=== PATIENT | female | born 1950 | race Caucasian/White ===

== ENCOUNTER 2019-03-10 20:51 | Emergency (ER) | payer BC, SELFPAY ==
[2019-03-10 20:53] VITALS: BP 156/81; PULSE 88; RESP 16; TEMP 36.6; O2SAT 96; BMI 24.1
--- NOTE | 2019-03-10 21:06 | RAD_ITS ---
We are attempting to reach an attending provider to discuss findings. An addendum with communication details will be sent when the communication is complete. STUDY: X-RAY CHEST REASON FOR EXAM: Female, 68 years old. Pneumothorax. TECHNIQUE: Frontal view of the chest COMPARISON: None. FINDINGS: There is a small (approximately 10%) right apical pneumothorax. There is no left-sided pneumothorax. There is right basilar atelectasis. The lungs are otherwise clear. There are no pleural effusions. The heart is normal in size. The visualized osseous structures are within normal limits. RAD/Chest 1 View (Portable) IMPRESSION: Small right apical pneumothorax. Electronically Signed: Javed Solo, at 21:35 EDT Tel , Service support ,
[2019-03-10 21:21] VITALS: PULSE 84; RESP 19; O2SAT 96
[2019-03-10 22:13] VITALS: PULSE 82; RESP 20; O2SAT 95
--- NOTE | 2019-03-10 22:18 | ED.VISSUMM ---
- ER Visit Summary Date of Service: 03/10/19 Chief Complaint: Chest pain History of Present Illness: The patient is a 68 F with chest pain for a few days, it is somewhat positional and shortness of breath she is an avid smoker, she is presenting from an urgent care after being diagnosed with a pneumothorax. Physical Examination: She has clear bilateral breath sounds. No hypoxia she does have some coarse breath sounds. Emergency Department Course and Treatment: [X-ray done in this emergency department shows a 10% pneumothorax. I had a long discussion with the patient, at this time we will try conservative treatment, I told her the rate of reabsorption would be 1 %/day, she wants conservative treatment at this time. She knows that if she feels where she needs to return right away. I will give her analgesia. I did talk to her at length about smoking cessation. I will place a nicotine patch. Disposition: [Discharge stable condition] Impression: [Spontaneous pneumothorax] This note was generated with [employer] dictation software. It may contain incorrect words, spelling, and punctuation that were not noted in review of the chart prior to signing ED Disposition - Plan for ED Patient: Disposition: Home or Assisted Living Instructions: Pneumothorax (Collapsed Lung) Prescriptions: Hydrocodone Bitart/Apap 5-325 [[place] 5MG-325MG] 1 tab PO Q4H PRN PRN 2 Days #12 tab PRN Reason: Pain Referrals: Marshall Schneider MD [Primary Care Provider] - 3-5 Days
--- NOTE | 2019-03-10 22:21 | ED.DCSUM_ITS ---
- ER Visit Summary Date of Service: 03/10/19 Chief Complaint: Chest pain History of Present Illness: The patient is a 68 F with chest pain for a few days, it is somewhat positional and shortness of breath she is an avid smoker, she is presenting from an urgent care after being diagnosed with a pneumothorax. Physical Examination: She has clear bilateral breath sounds. No hypoxia she does have some coarse breath sounds. Emergency Department Course and Treatment: [X-ray done in this emergency department shows a 10% pneumothorax. I had a long discussion with the patient, at this time we will try conservative treatment, I told her the rate of reabsorption would be 1 %/day, she wants conservative treatment at this time. She knows that if she feels where she needs to return right away. I will give her analgesia. I did talk to her at length about smoking cessation. I will place a nicotine patch. Disposition: [Discharge stable condition] Impression: [Spontaneous pneumothorax] This note was generated with [employer] dictation software. It may contain incorrect words, spelling, and punctuation that were not noted in review of the chart prior to signing ED Disposition - Plan for ED Patient: Disposition: Home or Assisted Living Instructions: Pneumothorax (Collapsed Lung) Prescriptions: Hydrocodone Bitart/Apap 5-325 [[place] 5MG-325MG] 1 tab PO Q4H PRN PRN 2 Days #12 tab PRN Reason: Pain Referrals: Marshall Schneider MD [Primary Care Provider] - 3-5 Days
[2019-03-10] MEDS: HYDROcodone Bitartrate/Apap 5/325 Tablet PO ×2 (22:32→22:46)
== END 2019-03-10 22:47 | disposition home or self-care (01) ==
PROVIDERS: Emergency Provider Emergency Medicine; Family Provider Family Medicine; PCP Family Medicine
DX: J93.83 Other pneumothorax (principal); F17.200 Nicotine dependence, unspecified, uncomplicated
CPT/HCPCS: 71045; 94760; 99284; A4216

== ENCOUNTER → 2021-02-15 08:26 | Outpatient (CLI) | payer MEDICARE, BC, SELFPAY ==
[2021-02-15 09:52] LABS: Hematocrit 42.8 % (37-47); Hemoglobin 13.9 g/dL (12.0-15.0); Mean Corp Hgb Conc 32.5 g/dL (32-36); Mean Corpuscular Hgb 31.9 pg (27.0-32.0); Mean Corpuscular Volume 98.2 fL (81-99); Mean Platelet Vol. 11.1 fl (6.2-12.0); Platelet Count 326 K/mm3 (150-450); RBC Distribution Width CV 13.6 % (11.6-14.6); RBC Distribution Width SD 49.7 fl (35.1-43.9); Red Blood Count 4.36 M/mm3 (4.2-5.4); White Blood Count 7.5 K/mm3 (4.4-11.0)
[2021-02-15 10:41] LABS: Anion Gap 3 (5-15); BUN 10 mg/dL (7-18); BUN/Creat Ratio 12.4 RATIO (10-20); Calcium,Total 9.2 mg/dL (8.5-10.1); Chloride 105 mmol/L (98-107); Cholesterol 173 mg/dL (200); Creatinine, Serum 0.81 mg/dL (0.55-1.02); EST Glomerular Filtration Rate 74 mL/min (>60); Est Glom Filt Rate - Afr Amer 90 mL/min (>60); Glucose 98 mg/dL (74-106); High Density Lipoprotein 48 mg/dL; Potassium 4.3 mmol/L (3.5-5.1); Sodium Level 140 mmol/L (136-145); Thyroid Stim Hormone (TSH) 0.84 uIU/mL (0.358-3.74); Triglycerides 129 mg/dL; Very Low Density Lipoprotein 26 mg/dL (5-40)
== END ==
PROVIDERS: PCP Family Medicine; Visit Provider Family Medicine
DX: R03.0 Elevated blood-pressure reading, without diagnosis of hypertension (principal); E03.9 Hypothyroidism, unspecified; R09.89 Other specified symptoms and signs involving the circulatory and respiratory systems; Z13.220 Encounter for screening for lipoid disorders
CPT/HCPCS: 36415; 80048; 80061; 84443; 85027

== ENCOUNTER → 2021-02-28 12:36 | Outpatient (CLI) | payer MEDICARE, BC, SELFPAY ==
--- NOTE | 2021-02-28 12:41 | CDU_ITS ---
Reason For Study: Bruit Rt. Velocities/BP Lt. Velocities/BP Prox CCA 91/15 cm/sec. Prox CCA 124/19 cm/sec. Mid CCA 72/14 cm/sec. Mid CCA 76/18 cm/sec. Dist CCA 77/20 cm/sec. Dist CCA 74/20 cm/sec. Prox ICA 70/17 cm/sec. Prox ICA 66/18 cm/sec. Mid ICA 81/22 cm/sec. Mid ICA 103/27 cm/sec. Dist ICA 122/16 cm/sec. Dist ICA 118/30 cm/sec. Rt. ICA/CCA = 1.7. Lt. ICA/CCA = 1.5. Prox ECA 125/8 cm/sec. Prox ECA 201/8 cm/sec. Rt. Vert. 55/12 cm/sec. Lt. Vert. 105/19 cm/sec. Right Extracranial There is heterogeneous, irregular atherosclerotic plaque noted in the right common carotid artery. There is heterogeneous, irregular atherosclerotic plaque noted in the right internal carotid artery. There is heterogeneous, irregular atherosclerotic plaque noted in the right external carotid artery. Antegrade flow is noted in the right vertebral artery. Left Extracranial There is heterogeneous, irregular atherosclerotic plaque noted in the left common carotid artery. There is heterogeneous, irregular atherosclerotic plaque noted in the left internal carotid artery. There is heterogeneous, irregular atherosclerotic plaque noted in the left external carotid artery. Antegrade flow is noted in the left vertebral artery. Procedure Carotid Duplex 85158. This is a Carotid Duplex examination using B-mode, color flow and specral Doppler. Exam performed in department. VL/Carotid Duplex Ultrasound Interpretation Summary Irregular plague right internal carotid artery with <50% <50% stenosis right external carotid Irregular plague at the proximal left internal carotid with <50% stenosis. >50% stenosis left external carotid Patent, antegrade vertebrals bilaterally Ordering Physician: Jed Schneider Referring Physician: Jed Schneider Performed By: Medina Garvey, GREGORY, RVT
== END ==
PROVIDERS: PCP Family Medicine; Referring Provider Family Medicine; Visit Provider Family Medicine
DX: R09.89 Other specified symptoms and signs involving the circulatory and respiratory systems (principal)
CPT/HCPCS: 93880

== ENCOUNTER → 2021-03-19 | Outpatient (CLI) | payer MEDICARE, BC, SELFPAY | END | disposition home or self-care (01) | LOC: LABSPEC 14:57 | PROVIDERS: PCP Family Medicine; Visit Provider Otolaryngology | DX: H92.11 Otorrhea, right ear (principal) | CPT/HCPCS: 87070; 87075; 87077; 87186; 87205 ==

== ENCOUNTER → 2021-05-21 09:42 | Outpatient (CLI) | payer MEDICARE, BC, SELFPAY ==
[2021-05-21 12:33] LABS: Anion Gap 5 (5-15); BUN 12 mg/dL (7-18); BUN/Creat Ratio 13.3 RATIO (10-20); Calcium,Total 9.3 mg/dL (8.5-10.1); Chloride 96 mmol/L (98-107); EST Glomerular Filtration Rate 65 mL/min (>60); Est Glom Filt Rate - Afr Amer 79 mL/min (>60); Glucose 103 mg/dL (74-106); Potassium 4.3 mmol/L (3.5-5.1); Sodium Level 130 mmol/L (136-145)
== END ==
PROVIDERS: PCP Family Medicine; Referring Provider Family Medicine; Visit Provider Family Medicine
DX: I10 Essential (primary) hypertension (principal)
CPT/HCPCS: 36415; 80048

== ENCOUNTER → 2021-09-04 | Outpatient (CLI) | payer MEDICARE, BC, SELFPAY | END | disposition home or self-care (01) | LOC: LABSPEC 09-05 07:40 | PROVIDERS: PCP Family Medicine; Referring Provider Family Medicine; Visit Provider Family Medicine | DX: R69 Illness, unspecified (principal) ==

== ENCOUNTER → 2021-09-05 07:28 | Outpatient (CLI) | payer MEDICARE, BC, SELFPAY ==
--- NOTE | 2021-09-04 13:20 | LES_PTH ---
PATIENT: JOLLY WALDEN LOC: CT U#:[id number] AGE/SX: 75/F ROOM: RE09/05/[address]: Dr. Jed Schneider MD : 1950 BED: DIS: SPEC #: [id number] RECD: 09/04/21 17:28 STATUS: KITTY LUIS #: [id number] SHANNON: 09/04/21 13:[address]: Jed Schneider DEPT: SURGICAL PATHOLOGY RECD BY: Kadie Loo Tissues: Skin of scalp, NOS Procedures: Surgery Specimen Level IV HEADER OPERATION: Punch biopsy scalp PRE-OP DIAGNOSIS: Atypical nevus scalp TISSUE SUBMITTED: Atypical nevus scalp MICROSCOPIC DIAGNOSIS Scalp lesion, punch biopsy: Basal cell carcinoma. DORIS:denae 09/08/2021 COMMENT Case has been reviewed in consultation with Dr. Talley who concurs with the above diagnosis. IDC:AM MICROSCOPIC DESCRIPTION Slides are reviewed. GROSS DESCRIPTION Received in fixative is one container labeled with the patient's name and designated scalp. The specimen consists of a punch biopsy of horton-white skin measuring 0.4 cm in diameter and 0.3 cm in length. The entire specimen is submitted in one cassette. / SJ:rg 09/05/21 TC:0 CPT: 88105
--- NOTE | 2021-09-05 07:30 | CT_ITS ---
STUDY: LOW DOSE CT LUNG CANCER SCREENING REASON FOR EXAM: Female, 70 years old. TOBACCO USE RADIATION DOSAGE (If Supplied By Facility): CTDIvol = ( 2.01 ) mGy, DLP = ( 73.74 ) mGycm TECHNIQUE: No contrast was administered. Low dose technique was utilized (average mAS-38 and kVp 120). 1.25 mm axial source images with a slice interval of 1.25-mm were reconstructed in lung windows. 2.5 mm axial source images with a slice interval of 2.5-mm were reconstructed in lung windows. 5.0 mm axial source images with a slice interval of 5.0-mm were reconstructed in soft tissue windows. Nodule measured using lung windows on PACS and/or independent workstation with automated measurement of minimum and maximum diameter. Nodule measurement reported as average diameter rounded to the nearest whole number. Growth is defined as an increase ins size of greater than 1.5 mm. COMPARISON: None. Emphysema: Scarring at the right lung apex. Diffuse emphysematous changes. 2 mm noncalcified pleural-based nodule along the posterior lateral aspect of the right upper lobe as seen on axial image #43. 2 mm calculus in the lateral aspect of the right upper lobe as seen on axial image #52. 3 mm nodule in the peripheral anterior aspect of the right upper lobe as seen on axial image #71. Endobronchial lesion: None Aorta: Atherosclerotic plaque formation. Coronary arteries: Coronary artery calcification. Heart: Unremarkable Pulmonary artery: Unremarkable Mediastinal nodes: Small mediastinal lymph nodes. Other chest and abdominal findings: Small hiatal hernia. CT/Low Dose CT Lung Screening IMPRESSION: Lung-RADS category 2 - Continue annual screening with LDCT in 12 months. IMPORTANT NOTES FOR USE: ACR Lung-RADS Version 1.1 Assessment Categories Release Date: 2018 Category: Coded 0-4 bases on nodule(s) with highest degree of suspicion. Negative screen is defined as categories 1 and 2; a positive screen is defined as categories 3 and 4. Category 3 and 4A nodules that are unchanged on interval CT should be coded as category 2, and individuals returned to screening in 12 months. Category 4X: Category 3 or 4 nodules with additional imaging findings that increase the suspicion of lung cancer, such as spiculation, GGN that doubles in size in 1 year, enlarged lymph notes, etc. Category Modifiers: S (significant finding unrelated to lung cancer) Electronically Signed: Gian Ferrer MD at 13:47 EST , Service support ,
== END ==
PROVIDERS: PCP Family Medicine; Referring Provider Family Medicine; Visit Provider Family Medicine
DX: Z12.2 Encounter for screening for malignant neoplasm of respiratory organs (principal); F17.210 Nicotine dependence, cigarettes, uncomplicated
CPT/HCPCS: 71271; 88305

== ENCOUNTER → 2021-09-12 | Outpatient (CLI) | payer MEDICARE, BC, SELFPAY ==
--- NOTE | 2021-09-12 11:00 | LES_PTH ---
PATIENT: JOLLY WALDEN LOC: [facility] U#:[id number] AGE/SX: 70/F ROOM: RE09/12/[address]: Dr. Jed Gamez MD : 1950 BED: DIS: 09/12/2021 SPEC #: [id number] RECD: 09/15/21 09:13 STATUS: KITTY TANNERBrady #: [id number] SHANNON: 09/12/21 11:[address]: Jed Gamez DEPT: SURGICAL PATHOLOGY RECD BY: Kadie Loo ENTERED: 09/15/21 09:14 SP TYPE: Lesion OTHR DR: Dr. Jed Schneider MD Tissues: Skin of external ear, NOS Procedures: Surgery Specimen Level III HEADER OPERATION: Right ear mass PRE-OP DIAGNOSIS: Right ear mass TISSUE SUBMITTED: Right ear mass MICROSCOPIC DIAGNOSIS Right ear mass, biopsy: Consistent with cholesteatoma. AM:denae 09/16/2021 MICROSCOPIC DESCRIPTION Slides are reviewed. GROSS DESCRIPTION Received in fixative is one container labeled with the patient's name and designated right ear mass. The specimen consists of multiple irregular fragments of horton-brown soft tissue that in aggregate measure 0.3 x 0.1 x 0.1 cm. The specimen is totally submitted in one cassette. / SJ:denae 09/15/21 TC:5 CPT: 83827
== END | disposition home or self-care (01) ==
PROVIDERS: PCP Family Medicine; Referring Provider Otolaryngology; Visit Provider Otolaryngology
DX: H93.8X1 Other specified disorders of right ear (principal)
CPT/HCPCS: 88304; 88305

== ENCOUNTER → 2021-09-25 08:04 | Outpatient (CLI) | payer MEDICARE, BC, SELFPAY ==
--- NOTE | 2021-09-25 08:07 | BI_ITS ---
MAMMOGRAPHY - BILATERAL SCREENING REASON FOR EXAM: Female, 71 years old. Routine annual screening examination. PERTINENT HISTORY: Non-contributory. TECHNIQUE: Digital bilateral breast zaid (3D mammographic acquisition) in the CC and MLO projections. 2-D mediolateral oblique (MLO) and craniocaudad (CC) views of both breasts were obtained. CAD: Full Field Digital Mammography with Computer Added Detection was performed. COMPARISON: No comparison mammograms available at this time. If any prior films become available, an addendum to this report can be generated. FINDINGS: Breast Composition: The breasts are heterogeneously dense, which may obscure small masses. There are no dominant masses or suspicious calcifications. There is an 8.2 mm densely calcified nodule in the upper central portion of the left breast suggestive of calcified fibroadenoma. No other significant abnormalities are identified. There has been no significant change since the prior study. BI/SCREENING MAMM (CAD), BILAT IMPRESSION: Stable bilateral screening mammogram. Yearly follow-up mammogram recommended. (A) ASSESSMENT CATEGORY: BIRADS Category 2: Benign. A letter regarding these results will be sent to the patient by the facility within 30 days. Approximately 10% of breast cancers are not detected by mammography. A normal mammogram should not delay biopsy of a clinically suspicious abnormality. [id number] Electronically Signed: Gian Ferrer MD at 9:21 EST , Service support ,
--- NOTE | 2021-09-25 09:35 | BD_ITS ---
STUDY: DUAL ENERGY X-RAY ABSORPTIOMETRY / DXA REASON FOR EXAM: Female, 71 years old. Z780 TECHNIQUE: Bone Mineral Density (BMD) measurements of lumbar spine and bilateral hips were obtained. COMPARISON: None. FINDINGS: Lumbar Spine (L1-L4): g/cm2 (0.940) / T-score (-1.0) / Z-score (1.3) Findings are suggestive of normal bone density with a low fracture risk. Left Femur Total: g/cm2 (0.869) / T-score (-0.6) / Z-score (1.1) Left Femoral Neck: g/cm2 (0.648) / T-score (-1.8) / Z-score (0.2) Right Femur Total: g/cm2 (0.856) / T-score (-0.7) / Z-score (1.0) Right Femoral Neck: g/cm2 (0.671) / T-score (-1.6) / Z-score (0.4) BD/Dexa Bone Density Study IMPRESSION: The patient is considered osteopenic as outlined below according to World [place] Organization (WHO) criteria with a moderate fracture risk. Reference Information: The T-score is the number of standard deviations above or below the standard which is normal for young adults at their peak bone mineral density. The World Health Organization (WHO) interprets the T-scores as follows: Above -1 Normal bone density Between -1 and -2.5 Osteopenia Equal to / or below -2.5 Osteoporosis As a practical clinical guideline, osteopenia may be graded as follows: Mild -1 through -1.5 Moderate -1.6 through -2.0 Severe -2.1 through -2.4 The Z-score is the number of standard deviations above or below age-matched controls. A Z-score of less than -1.5 would be considered abnormal. References: 1. NIH Osteoporosis and Related Bone Diseases www osteo.org 2. International Society for Clinical Densitometry www iscd.org 3. National Osteoporosis Foundation www nof.org Electronically Signed: Gian Ferrer MD at 10:30 EST , Service support ,
== END ==
PROVIDERS: PCP Family Medicine; Referring Provider Family Medicine; Visit Provider Family Medicine
DX: Z78.0 Asymptomatic menopausal state (principal); Z12.31 Encounter for screening mammogram for malignant neoplasm of breast
CPT/HCPCS: 77067; 77080

== ENCOUNTER 2021-09-29 11:01 | Day surgery (SDC) | payer MEDICARE, BC, SELFPAY ==
[2021-09-29] VITALS (7 sets, daily range): BP systolic 134–171; BP diastolic 69–75; PULSE 72–78; RESP 16; TEMP 35.7–37.1; O2SAT 90–98; BMI 23.3
--- NOTE | 2021-09-29 | LES_PTH ---
PATIENT: JOLLY WALDEN LOC: [facility] [place] U#:[id number] AGE/SX: 71/F ROOM: RE09/29/[address]: Dr. Jesus Alberto Mcgrath MD : 1950 BED: DIS: 09/29/2021 SPEC #: [id number] RECD: 09/30/21 07:39 STATUS: KITTY REBrady #: [id number] SHANNON: 09/29/21 00:[address]: Jesus Alberto Mcgrath DEPT: SURGICAL PATHOLOGY RECD BY: Jimmy Paris ENTERED: 09/30/21 12:56 SP TYPE: Lesion OTHR DR: Dr. Jed Schneider MD Tissues: Skin of scalp, NOS Procedures: Surgery Specimen Level IV HEADER OPERATION: Excision, basal cell carcinoma, anterior frontal scalp, skin PRE-OP DIAGNOSIS: Basal cell carcinoma right anterofrontal scalp near hairline TISSUE SUBMITTED: BCC lesion right anterofrontal scalp hairline, suture at 12 o?clock MICROSCOPIC DIAGNOSIS Skin lesion of anterofrontal scalp, excisional biopsy: Basal cell carcinoma, superficial, nodular and ulcerated, completely excised. Solar elastosis and fat necrosis. AM:denae 10/01/2021 MICROSCOPIC DESCRIPTION Slides are reviewed. GROSS DESCRIPTION Received in fixative is one container labeled with the patient's name and designated right anterofrontal scalp. The specimen consists of a rectangular fragment of light horton hair-bearing skin measuring 2.5 x 2.2 x 0.5 cm. The cutaneous surface displays a flat circular lesion measuring 1 cm in greatest dimension. The specimen is contains a suture at one edge representing the 12 o?clock position. The specimen is inked as follows: 12 o?clock - black, 3 o?clock - green, 6 o?clock - blue and 9 o?clock - red. The specimen is serially sectioned and totally submitted in two cassettes. / AM:denae 09/30/21 TC:0 CPT: 10309
--- NOTE | 2021-09-29 13:57 | HP.PCM_ITS ---
History and Physical Date of Admission: 09/29/21 HISTORY OF PRESENT ILLNESS 71 year old woman presents for evaluation of a lesion on her right anterofrontal scalp near hairline that had increased in size over the last several months and became more raised in configuration. Intermittently it would get scabby. A punch biopsy was done on 09/04/21 by her PCP, Dr. Schneider. Pathology showed a basal cell carcinoma. She denies fever. She denies recent infection. She denies trauma. She comes in today for further evaluation and treatment. PAST MEDICAL HISTORY Basal cell carcinoma of scalp High blood pressure Smoker Thyroid disease PAST SURGICAL HISTORY History of hysterectomy History of knee surgery History of thyroid surgery History of tubal ligation ALLERGIES iodine MEDICATIONS fluticasone propionate actuation nasal spray,suspension lisinopril FAMILY HISTORY Other - Cancer, Heart disease, Ovarian cancer, Thyroid disorder SOCIAL HISTORY Smoking Status: Current every day smoker counseling given: provider counseling alcohol intake: never substance use type: does not use REVIEW OF SYSTEMS General - Denies fever, fatigue, and weight loss. Eyes - Denies cataracts and glaucoma. ENT - Denies nasal congestion and sore throat. History of thyroidectomy. Endocrine - Denies excessive thirst and urination. Skin - Had a scabby enlarging lesion right anterofrontal scalp near hairline that was punch biopsied on 09/04/21 and it showed a basal cell carcinoma. Musculoskeletal - Denies joint pain, joint stiffness, weakness of muscles and joints, back pain, and arthritis. History of knee surgery. Neuro - Denies headaches. Cardiovascular - Denies chest pain, fatigue, and shortness of breath with exertion. History of hypertension. Psych - Denies anxiety and depression. Respiratory - Denies chronic cough and shortness of breath. Patient is a smoker. Gastrointestinal - Denies nausea, vomiting, diarrhea, and constipation. Hematologic - Denies abnormal bruising and bleeding. Genitourinary - Denies hematuria and urinary frequency. History of kidney stones and having a hysterectomy. PHYSICAL EXAMINATION General - Alert and Oriented. HEENT - PERRL. EOMI. Throat is clear. On the right anterofrontal scalp near hairline is a lesion that is raised in configuration and has irregular borders. It is nodular. It measures 1.2 cm. No ulceration. Lesion is nontender. Recent punch biopsy on 09/04/21 showed a basal cell carcinoma. Some overlying alopecia noted. No other suspicious lesions noted. Neck - Supple and nontender. No cervical adenopathy. No suspicious lesions noted. Lungs - Clear to auscultation. Heart - Regular rate and rhythm. Abdomen - Soft and nondistended. Extremities - FROM. No axillary adenopathy. Radial pulses are palpable. No suspicious lesions noted. Neuro - CN II-XII grossly intact. Psych - Normal mood and affect. ASSESSMENT 1. 1.2 cm basal cell carcinoma right anterofrontal scalp near hairline. 2. Smoker. PLAN Pathology was reviewed from 09/04/21. It showed a basal cell carcinoma. Recommend excision of the rest of the lesion along with a margin in all directions. Will send the lesion to Pathology for analysis to rule out carcinoma at the edges. Reconstruction will be with skin grafting or possible skin flap. Surgery will be done under local anesthesia and IV sedation on an outpatient basis. Patient was informed of the risks and complications of the procedure including alternatives to surgery. These were discussed with the patient personally. Patient voices understanding and wishes to proceed. Some of the risks and complications were included in a form from the [place] [employer]. Encouraged patient to stop smoking as it may have deleterious effects on wound healing. We discussed the current risks associated with COVID-19. While it is understood that there is a community spread of COVID-19, the risk of trena COVID-19 while at [facility] ([facility]) is very low; however, the risk cannot be completely mitigated because of the community spread of the disease. We discussed in detail the risk of exposure to and/or potential harm posed by the COVID-19 virus with having a surgery/procedure at this time versus the risk of delaying the surgery/procedure. It is not possible to know either the risk of delaying the surgery or procedure or chance of getting an infection with perfect accuracy, but a joint decision was made to proceed at this time with the scheduled surgery/procedure as indicated on the consent form. Patient was notified that we will need to comply with any screening or testing [facility] wishes to perform or that surgery may be delayed for any positive results. Procedure Criteria Procedure Type: Elective COVID Risk Discussion: The surgeon/proceduralist and patient have discussed in detail the risk of exposure to and/or potential harm posed by the COVID-19 virus with having a surgery/procedure at this time versus the risk of delaying the surgery/procedure. It is not possible to know either the risk of delaying the surgery or procedure or chance of getting an infection with perfect accuracy, but a joint decision was made between the patient and the surgeon/proceduralist to proceed at this time with the scheduled surgery/procedure as indicated on the consent form.
[2021-09-29] MEDS: Lidocaine 1% /Epi 1:100 (20ml) 20 ML Vial (15:00)
[2021-09-29] MEDS: Mupirocin Ointment 22gm Tube 1 APPLIC (15:05)
--- NOTE | 2021-09-29 15:17 | OP.PCM_ITS ---
Problems Associated Problem List Diagnoses (1) Basal cell carcinoma of scalp: (2) Basal cell carcinoma of right forehead: (3) Smoker: Report of Operation Date of Procedure: 09/29/21 Pre-Operative Diagnosis: 1. 1.2 cm basal cell carcinoma right anterofrontal scalp near hairline. 2. Smoker. Post-Operative Diagnosis: 1. 1.2 cm basal cell carcinoma right anterofrontal scalp near hairline with inferior extension on the forehead. 2. Smoker. Surgery/Procedure Performed:: Excision 1.2 cm basal cell carcinoma right anterofrontal scalp near hairline with inferior extension onto forehead with right forehead horizontal advancement skin flap reconstruction (13.75 cm2). Description of Surgical Findings:: 71 year old woman presents for evaluation of a lesion on her right anterofrontal scalp near hairline that had increased in size over the last several months and became more raised in configuration. Intermittently it would get scabby. A punch biopsy was done on 09/04/21 by her PCP, Dr. Schneider. Pathology showed a basal cell carcinoma. She denies fever. She denies recent infection. She denies trauma. Patient was informed of the risks and complications of the procedure including alternatives to surgery. These were discussed with the patient personally. Patient voices understanding and wishes to proceed. Some of the risks and complications were included in a form from the [employer] [place] [employer]. Encouraged patient to stop smoking as it may have deleterious effects on wound healing. Surgeon: Jesus Alberto Mcgrath tomographic tech: Alexey Robles Type of Anesthesia: General Specimen's removed: Basal cell carcinoma right anterofrontal scalp by hairline with inferior extension onto forehead to Pathology. Drains: None. Estimated Blood Loss (mL): 25. Description of Procedure: Patient was taken to OR in supine position and was placed under general anesthesia. The frontal scalp and forehead areas and right neck area were prepped and draped in the usual fashion. SCD's were placed for DVT prophylaxis. Perioperative antibiotics were given intravenously. Using xylocaine with epinephrine, the lesion right anterofrontal scalp by hairline was infiltrated. After waiting 5 minutes for the anesthetic to take effect, the basal cell carcinoma was excised in a circular fashion down into the subcutaneous tissue. A margin of 4 mm was used for the excision in all directions thus making it a 2 cm excision. After the excision, there was inferior extension of the wound onto the forehead. A suture was marked at the 12 oclock position for pathology orientation. The lesion was sent to Pathology for analysis to rule out carcinoma at the margins. With the basal cell carcinoma wound extending inferiorly onto the forehead, I felt I could mobilize some skin flaps for the reconstruction and not have to use a skin graft. I took the circular wound and changed it to a square wound since we will be reconstructing the defect with horizontal advancement flaps where the tension is horizontal and not vertical. Vertical tension can lead to elevation of the eyebrow and some asymmetry. A lateral horizontal flap was designed. Incisions were made and the horizontal rectangular flap was elevated at the level of the underlying muscle. I extended the flap as necessary to allow wound closure with minimal tension and minimal distortion. The dimensions of the flap were 3.5 x 2.5 cm. Hemostasis was obtained with electrocautery. The wound was closed in a layered fashion with 4-0 Monocryl interrupted sutures for the deep dermis and subcutaneous tissue for the distal end of the flap closure. The sides of the flap closure has less tension and 5-0 Monocryl interrupted sutures were used for the deep dermis and subcutaneous tissue. The skin was approximated with 5-0 Prolene simple interrupted sutures. Antibiotic ointment was applied to the suture line. At the end of the procedure, there was no evidence of hematoma. There was no vascular compromise noted on the skin flap. The size of the defect and the size of the flap needed to close the defect was 13.75 cm2. About half the flap involved the scalp hairline and about half the flap involved the forehead. Patient tolerated the procedure well and was sent to PACU in satisfactory condition. Patient will be sent home on antibiotics and pain medication. She will keep her head elevated during the initial postoperative period. Patient will followup in a week for a wound check and for discussion of the pathology report and for removal of the sutures. Grafts/Implants Used: None. Complications None. Admit VTE Documentation VTE Present on Admission: No VTE Mechan Device Prophylaxis: SCD's VTE Pharm Prophylaxis ordered?: No Addendum Addendum: Surgery Charges CPT - 63517 ICD-10 - C44.319, C44.412, F17.200
--- NOTE | 2021-09-29 15:19 | PCM.DC ---
Discharge Instructions Diet Discharge Diet: No restrictions Activity Discharge Activity: May Drive (when not taking pain medication.), May Shower (in 2 days.) and - (keep head elevated. no heavy lifting.) May shower in (days): 2 May resume sexual activity in: No Restrictions Ice area for (Minutes): 5 (as needed forr facial swelling.) Weight Bearing Status: Weight bearing as tolerated Lifting Restrictions: 20 lbsw Keep extremity elevated above heart level: - (elevate head.) Dressing / Incision Call your doctor if your incision/area has: Continuous Slow Oozing, Sudden Increased Bleeding, Increased Pain/ Swelling, Increased Redness, Foul Smelling Discharge and Swelling at the incision site Call your doctor if you observe: Fever of 101 or Higher, Coldness, Increased Pain, Shortness of breath, Chest pain, Calf discomfort and Uncontrolled pain Suture Line Care: - (after operative dressing removed in 2 days, apply antibiotic ointment to suture line daily.) Remove Dressing in: 2 days (operative dressing.) Cleanse incision/area with: Soap & Water (when showering in two days.) Follow Up Care Please Follow Up With: Jesus Alberto Mcgrath MD When: one week. call [phone] for appt. Test Results: Test results from this visit will be discussed in further detail at your follow-up appointment, if applicable. Discharge Plan Admission Primary Reason for Your Visit: excision basal cell carcinoma right anterofrontal scalp by hairline Attending Provider: Jesus Alberto Mcgrath Primary Care Provider: Marshall Schneider Discharge Orders/Prescriptions Prescriptions: New clindamycin HCl [Cleocin HCl] 300 mg capsule 300 mg PO TID 4 Days Qty: 12 RF: 0 L.acidoph,saliva-B.bif-S.therm [Acidophilus Probiotic Blend] 175 mg capsule 1 cap PO DAILY Qty: 10 RF: 0 oxycodone-acetaminophen [Percocet] 5-325 mg tablet 1 tab PO Q6H PRN (Reason: pain (scale score 7-10)) 7 Days Qty: 28 RF: 0 Continued fluticasone propionate 50 mcg/actuation spray,suspension 2 spray intranasal DAILY RF: 0 lisinopril 20 mg tablet 20 mg PO DAILY RF: 0 Referrals / Follow Up: Marshall Schneider MD [Primary Care Provider] - Disposition Disposition (needs filled in before D/C Order can be placed): Home, Self Care
== END 2021-09-29 17:21 ==
LOC: SDC 11:04 → AC 11:05
PROVIDERS: PCP Family Medicine; Referring Provider Surgery; Visit Provider Surgery
PROC: (CPT 14021; principal; 2021-09-29 12:40)
DX: C44.41 Basal cell carcinoma of skin of scalp and neck (principal); F17.200 Nicotine dependence, unspecified, uncomplicated; I10 Essential (primary) hypertension; Z79.899 Other long term (current) drug therapy
CPT/HCPCS: 14021; 88305; J7120; J2405

== ENCOUNTER → 2023-03-12 | Outpatient (CLI) | payer MEDICARE, SELFPAY ==
--- NOTE | 2023-03-12 13:13 | BI_ITS ---
MAMMOGRAPHY - BILATERAL SCREENING REASON FOR EXAM: Female, 72 years old. Routine annual screening examination. PERTINENT HISTORY: Non-contributory. TECHNIQUE: Digital bilateral breast humera (3D mammographic acquisition) in the CC and MLO projections. 2-D mediolateral oblique (MLO) and craniocaudad (CC) views of both breasts were obtained. CAD: Full Field Digital Mammography with Computer Added Detection was performed. COMPARISON: Comparison is made with prior examination dated September 25, 2021. FINDINGS: Breast Composition: The breasts are heterogeneously dense, which may obscure small masses. Stable 1 cm densely calcified nodule in the upper central portion of the left breast suggestive of a calcified fibroadenoma. Stable small benign-appearing bilateral axillary lymph nodes. No other significant abnormalities are identified. There has been no significant change since the prior study. BI/SCRN MAMM (CAD)W/HUMERA BILAT IMPRESSION: Stable bilateral screening mammogram. Yearly follow-up mammogram recommended. (A) ASSESSMENT CATEGORY: BIRADS Category 2: Benign. A letter regarding these results will be sent to the patient by the facility within 30 days. Approximately 10% of breast cancers are not detected by mammography. A normal mammogram should not delay biopsy of a clinically suspicious abnormality. [id number] Electronically Signed: Gian Ferrer MD at 14:39 EDT ,
--- NOTE | 2023-03-12 13:40 | CT_ITS ---
STUDY: LOW DOSE CT LUNG CANCER SCREENING REASON FOR EXAM: Female, 72 years old. TOBACCO ABUSE. The patient smoked 1 pack per day for 30 years. RADIATION DOSAGE (If Supplied By Facility): CTDIvol = ( 3.02 ) mGy, DLP = ( 117.02 ) mGycm TECHNIQUE: No contrast was administered. Low dose technique was utilized (average mAS-38 and kVp 120). 1.25 mm axial source images with a slice interval of 1.25-mm were reconstructed in lung windows. 2.5 mm axial source images with a slice interval of 2.5-mm were reconstructed in lung windows. 5.0 mm axial source images with a slice interval of 5.0-mm were reconstructed in soft tissue windows. COMPARISON: Comparison is made with prior study dated September 05, 2021. NODULES: Stable faint noncalcified nodule in the posterolateral aspect of the right upper lobe as seen on axial image #42. Stable 2 mm noncalcified nodule in the lateral aspect the right upper lobe as seen on axial image #48. Stable faint 3 mm nodule in the peripheral anterior aspect of the right upper lobe as seen on axial image #73. Emphysema: Stable scarring in the right lung apex. Diffuse emphysematous changes. Endobronchial lesion: None Aorta: Atherosclerotic plaque formation of the aortic arch. CORONARY ARTERIES: Coronary artery calcification is seen. Heart: Unremarkable. Pulmonary artery: Unremarkable. Mediastinal nodes: Small benign-appearing mediastinal lymph nodes. Other chest and abdominal findings: CT/Low Dose CT Lung Screening IMPRESSION: Lung-RADS category 2 - Continue annual screening with LDCT in 12 months. IMPORTANT NOTES FOR USE: ACR Lung-RADS Version 1.1 Assessment Categories Release Date: 2018 Category: Coded 0-4 bases on nodule(s) with highest degree of suspicion. Negative screen is defined as categories 1 and 2; a positive screen is defined as categories 3 and 4. Category 3 and 4A nodules that are unchanged on interval CT should be coded as category 2, and individuals returned to screening in 12 months. Category 4X: Category 3 or 4 nodules with additional imaging findings that increase the suspicion of lung cancer, such as spiculation, GGN that doubles in size in 1 year, enlarged lymph notes, etc. Category Modifiers: S (significant finding unrelated to lung cancer) Electronically Signed: Gian Ferrer MD at 14:06 EDT ,
== END | disposition home or self-care (01) ==
LOC: CT 13:11
PROVIDERS: PCP Family Medicine; Referring Provider Family Medicine; Visit Provider Family Medicine
DX: Z12.31 Encounter for screening mammogram for malignant neoplasm of breast (principal); F17.210 Nicotine dependence, cigarettes, uncomplicated
CPT/HCPCS: 71271; 77063; 77067

== ENCOUNTER → 2024-03-07 | Outpatient (CLI) | payer MEDICARE, SELFPAY ==
[2024-03-07 13:25] LABS: Anion Gap 2 (5-15); BUN 11 mg/dL (7-18); BUN/Creat Ratio 12.5 RATIO (10-20); Calcium,Total 9.3 mg/dL (8.5-10.1); Chloride 106 mmol/L (98-107); Cholesterol 206 mg/dL (200); Creatinine, Serum 0.88 mg/dL (0.55-1.02); EST Glomerular Filtration Rate 67 mL/min (>60); Est Glom Filt Rate - Afr Amer 81 mL/min (>60); Glucose 107 mg/dL (74-106); High Density Lipoprotein 54 mg/dL; Potassium 4.2 mmol/L (3.5-5.1); Sodium Level 137 mmol/L (136-145); Thyroid Stim Hormone (TSH) 0.74 uIU/mL (0.358-3.74); Triglycerides 96 mg/dL; Very Low Density Lipoprotein 19 mg/dL (5-40)
[2024-03-07 13:30] LABS: Vitamin D,25 Hydroxy 50.3 ng/mL
== END | disposition home or self-care (01) ==
LOC: MFPLAB 09:54
PROVIDERS: PCP Family Medicine; Visit Provider Family Medicine
DX: I10 Essential (primary) hypertension (principal); M85.80 Other specified disorders of bone density and structure, unspecified site; Z13.220 Encounter for screening for lipoid disorders
CPT/HCPCS: 36415; 80048; 80061; 82306; 84443

== ENCOUNTER → 2024-03-17 | Outpatient (CLI) | payer MEDICARE, SELFPAY ==
--- NOTE | 2024-03-17 08:21 | CT_ITS ---
STUDY: LOW DOSE CT LUNG CANCER SCREENING REASON FOR EXAM: Female, 73 years old. Long-term smoking history RADIATION DOSAGE (If Supplied By Facility): CTDIvol = ( 2.01 ) mGy, DLP = ( 74.24 ) mGycm TECHNIQUE: No contrast was administered. Low dose technique was utilized (average mAS-38 and kVp 120). 1.25 mm axial source images with a slice interval of 1.25-mm were reconstructed in lung windows. 2.5 mm axial source images with a slice interval of 2.5-mm were reconstructed in lung windows. 5.0 mm axial source images with a slice interval of 5.0-mm were reconstructed in soft tissue windows. COMPARISON: 03/12/2023 FINDINGS: Lung windows show stable nonspecific pleural thickening in both apices. There is a stable scar or groundglass opacification along the left major fissure on axial image 66 again measuring approximately 8 mm. There is a stable 3 mm pleural-based nodular density in the left upper lobe on axial image 73. There is a stable cavitary 6 mm nodule in the left upper lobe on axial image 94 there is no organized infiltrate, effusion, or suspicious new noncalcified mass or nodule. Overall, little significant interval change noted since the previous study Soft tissue windows show an enlarged right lobe of the thyroid gland. No suspicious adenopathy. No enlargement of the thoracic aorta is identified. There are calcified coronary vessels. Limited cuts through the upper abdomen show hiatal hernia with evidence to suspect GE reflux. Limited cuts of the upper abdomen show a 1 cm nonobstructing left renal stone . Bony structures show degenerative change CT/Low Dose CT Lung Screening IMPRESSION: Lung-RADS category 2 - Continue annual screening with LDCT in 12 months. IMPORTANT NOTES FOR USE: ACR Lung-RADS Version 1.1 Assessment Categories Release Date: 2018 Category: Coded 0-4 bases on nodule(s) with highest degree of suspicion. Negative screen is defined as categories 1 and 2; a positive screen is defined as categories 3 and 4. Category 3 and 4A nodules that are unchanged on interval CT should be coded as category 2, and individuals returned to screening in 12 months. Category 4X: Category 3 or 4 nodules with additional imaging findings that increase the suspicion of lung cancer, such as spiculation, GGN that doubles in size in 1 year, enlarged lymph notes, etc. Category Modifiers: S (significant finding unrelated to lung cancer) Electronically Signed: Tony East MD at 11:25 EDT ,
== END | disposition home or self-care (01) ==
PROVIDERS: PCP Family Medicine; Referring Provider Family Medicine; Visit Provider Family Medicine
DX: Z12.2 Encounter for screening for malignant neoplasm of respiratory organs (principal); F17.210 Nicotine dependence, cigarettes, uncomplicated
CPT/HCPCS: 71271

== ENCOUNTER → 2024-03-28 | Outpatient (CLI) | payer MEDICARE, SELFPAY ==
--- NOTE | 2024-03-28 15:20 | BI_ITS ---
MAMMOGRAPHY - BILATERAL SCREENING REASON FOR EXAM: Female, 73 years old. Routine annual screening examination. PERTINENT HISTORY: Non-contributory. TECHNIQUE: Digital bilateral breast humera (3D mammographic acquisition) in the CC and MLO projections. 2-D mediolateral oblique (MLO) and craniocaudad (CC) views of both breasts were obtained. CAD: Full Field Digital Mammography with Computer Added Detection was performed. COMPARISON: Comparison is made with prior study March 12, 2023 and September 25, 2021. FINDINGS: Breast Composition: The breasts are heterogeneously dense, which may obscure small masses. There are no dominant masses or suspicious calcifications. Stable 1 cm densely calcified nodule in the upper central portion of the left breast suggestive of a calcified fibroadenoma. Stable bilateral axillary lymph nodes. No other significant abnormalities are identified. There has been no significant change since the prior study. BI/SCRN MAMM (CAD)W/HUMERA BILAT IMPRESSION: Stable bilateral screening mammogram. Yearly follow-up mammogram recommended. (A) ASSESSMENT CATEGORY: BIRADS Category 2: Benign. A letter regarding these results will be sent to the patient by the facility within 30 days. Approximately 10% of breast cancers are not detected by mammography. A normal mammogram should not delay biopsy of a clinically suspicious abnormality. [id number] Electronically Signed: Gian Ferrer MD at 8:31 EDT ,
--- NOTE | 2024-03-28 15:26 | BD_ITS ---
STUDY: DUAL ENERGY X-RAY ABSORPTIOMETRY / DXA REASON FOR EXAM: Female, 73 years old. [id number] TECHNIQUE: Bone Mineral Density (BMD) measurements of lumbar spine and bilateral hips were obtained. COMPARISON: Comparison is made with prior study dated September 25, 2021. FINDINGS: Lumbar Spine (L1-L4): g/cm2 (0.920) / T-score (-1.2) / Z-score (1.3) Findings are suggestive of osteopenia with a low fracture risk. Left Femur Total: g/cm2 (0.848) / T-score (-0.8) / Z-score (1.0) Left Femoral Neck: g/cm2 (0.631) / T-score (-2.0) / Z-score (0.1) Right Femur Total: g/cm2 (0.834) / T-score (-0.9) / Z-score (0.9) Right Femoral Neck: g/cm2 (0.644) / T-score (-1.8) / Z-score (0.3) The T-Scores on the most recent prior examination were: Lumbar Spine (L1-L4): There has been worsening of bone density since the previous examination. Left Femur Total: which represents a worsening of 2.5%. Right Femur Total: which represents a worsening of 2.6%. BD/Dexa Bone Density Study IMPRESSION: The patient is considered osteopenic as outlined below according to World [place] Organization (WHO) criteria with a moderate fracture risk. There has been worsening of bone density since the previous examination. Reference Information: The T-score is the number of standard deviations above or below the standard which is normal for young adults at their peak bone mineral density. The World Health Organization (WHO) interprets the T-scores as follows: Above -1 Normal bone density Between -1 and -2.5 Osteopenia Equal to / or below -2.5 Osteoporosis As a practical clinical guideline, osteopenia may be graded as follows: Mild -1 through -1.5 Moderate -1.6 through -2.0 Severe -2.1 through -2.4 The Z-score is the number of standard deviations above or below age-matched controls. A Z-score of less than -1.5 would be considered abnormal. References: 1. NIH Osteoporosis and Related Bone Diseases www osteo.org 2. International Society for Clinical Densitometry www iscd.org 3. National Osteoporosis Foundation www nof.org Electronically Signed: Gian Ferrer MD at 8:31 EDT ,
== END | disposition home or self-care (01) ==
LOC: OPBD 15:17
PROVIDERS: PCP Family Medicine; Referring Provider Family Medicine; Visit Provider Family Medicine
DX: Z12.31 Encounter for screening mammogram for malignant neoplasm of breast (principal); Z78.0 Asymptomatic menopausal state
CPT/HCPCS: 77063; 77067; 77080

== ENCOUNTER → 2025-04-05 | Outpatient (CLI) | payer MEDICARE, SELFPAY ==
--- NOTE | 2025-04-05 08:06 | CT_ITS ---
EXAM: CT Chest, Lung Cancer Screening Without Intravenous Contrast CLINICAL INDICATION: >30 YEARS TOBACCO TECHNIQUE: Axial computed tomography images of the chest without intravenous contrast using low dose (LDCT) lung cancer screening protocol. This CT exam was performed using one or more of the following dose reduction techniques: automated exposure control, adjustment of the mA and/or kV according to patient size, and/or use of iterative reconstruction technique. COMPARISON: No relevant prior studies available. FINDINGS: LUNGS AND PLEURAL SPACES: Stable atelectasis or scar of the left major fissure measuring up to 8 mm. Stable 3 mm pleural-based nodule of the left upper lobe. Stable 6 mm nodule of the left upper lobe. No significant effusion. No pneumothorax. No new suspicious pulmonary nodules. HEART: Unremarkable. No cardiomegaly. No significant pericardial effusion. No significant coronary artery calcifications. BONES/JOINTS: Unremarkable. No acute fracture. SOFT TISSUES: Unremarkable. VASCULATURE: Unremarkable. No thoracic aortic aneurysm. LYMPH NODES: Unremarkable. No enlarged lymph nodes. OTHER FINDINGS: Prior dated 03/17/2024. CT/Low Dose CT Lung Screening IMPRESSION: 1. No new suspicious pulmonary nodules. 2. LUNG-RADS 2: Benign. Continue low-dose CT screening of the chest in 12 mon ths is recommended. Reading Location[facility]
--- OUTSIDE RECORDS SUMMARY | 2025-04-05 08:36 | XMS RPT_ITS | CCD ---
Author Organization [facility] Care Team Providers Care Double End Tenon Operator Name Role Phone Jed Schneider MD Primary Care Provider Jed Schneider Referring Unavailable Jed Schneider Attending Unavailable Jed Schneider Primary Care Unavailable Jed Schneider Referring Unavailable Jed Schneider Attending Unavailable Jed Schneider Primary Care Unavailable Allergies Allergy Classification Reported Allergen(s) Allergy Type Date of Onset Reaction(s) Facility (1 source) Contrast media Drug Allergy 5 [facility] (1 source) Iodine Drug Allergy 1 [facility] (1 source) Iodine Drug Allergy 1 [facility] Repository Medications Current Medications Medication Drug Class(es) Dates Sig (Normalized) Sig (Original) acetaminophen 325 mg / oxyCODONE hydrochloride 5 mg oral tablet (1 source) Opioid Agonist Start: 09-29-2021 take 1 tablet by mouth every six hours Oxycodone-Acetami nophen (Percocet) 5-325 mg tablet Active 1 TABLET PO EVERY 6 HOURS 28 7 September 29, 2021 28 tabs (twenty-eight) fluticasone propionate 0.05 mg/actuat metered dose nasal spray (1 source) Corticosteroid Start: 09-11-2021 take 1 spray(s) nasal route once daily Fluticasone Propionate Active 2 SPRAY INTRANASAL DAILY September 11, 2021 1:00am administer into each nostril L.Acidoph,Saliva-B. Bif-S.Therm (Acidophilus Probiotic Blend) 175 mg capsule (1 source) Start: 09-29-2021 take 1 capsule by mouth once daily L.Acidoph,Saliva- B.Bif-S.Therm (Acidophilus Probiotic Blend) 175 mg capsule Active 1 CAP PO DAILY September 29, 2021 1:00am lisinopril 20 mg oral tablet (1 source) Angiotensin Converting Enzyme Inhibitor Start: 09-11-2021 take 20 mg by mouth once daily Lisinopril Active 20 MG PO DAILY September 11, 2021 1:00am Completed/Discontinued Medications Medication Drug Class(es) Dates Sig (Normalized) Sig (Original) acetaminophen 325 mg / HYDROcodone bitartrate 5 mg oral tablet (1 source) Opioid Agonist Start: 03-10-2019 End: 03-12-2019 take 1 tablet by mouth every four hours as needed Hydrocodone-Acetam inophen Discontinued 1 TABLET PO EVERY 4 HOURS NEEDED 12 March 10, 2019 12:00am March 12, 2019 12:07am [id number] 200 actuat albuterol 0.09 mg/actuat metered dose inhaler (1 source) beta2-Adrenergic Agonist Start: 11-17-2019 take 2 puff(s) by inhalation every four hours as needed albuterol HFA (PROVENTIL HFA, VENTOLIN HFA) 90 mcg/actuation inhaler Indications: Bronchitis Inhale 2 Puffs as instructed every 4 hours as needed. 1 Inhaler 0 11/17/2019 Active Comment on above: Inhale 2 Puffs as in structed every 4 hours as needed. clindamycin 300 mg oral capsule (1 source) Lincosamide Antibacterial Start: 09-29-2021 End: 10-07-2021 take 1 capsule by mouth three times daily Clindamycin Hcl (Cleocin Hcl) 300 mg capsule Discontinued 300 MG PO THREE TIMES A DAY 12 September 29, 2021 1:00am October 07, 2021 3:15pm 12 hr guaiFENesin 600 mg extended release oral tablet (1 source) Start: 11-17-2019 take 2 tablets by mouth twice daily guaiFENesin (MUCINEX) 600 mg 12 hr tablet Indications: Bronchitis Take 2 tablets by mouth twice daily. 30 tablet 0 11/17/2019 Active Comment on above: Take 2 tablets by mo uth twice daily. Problems Active Problems Problem Classification Problem Date Documented Date Episodic/Chronic Calculus of urinary tract (1 source) Kidney stone; Translations: [Calculus of kidney] 11-21-2013 Episodic Disorders of lipid metabolism (1 source) Hyperlipidemia; Translations: [Hyperlipidemia, unspecified] Onset: 10-11-2007 09-21-2014 Chronic Essential hypertension (1 source) Hypertensive disorder; Translations: [Essential (primary) hypertension] 09-11-2021 Chronic Other nervous system disorders (1 source) Acute postoperative pain; Translations: [Other acute postprocedural pain] 09-29-2021 Episodic Other non-epithelial cancer of skin (2 sources) Basal cell carcinoma of scalp; Translations: [Basal cell carcinoma of skin of scalp and neck] 10-01-2021 Episodic Other non-traumatic joint disorders (1 source) Shoulder pain; Translations: [Pain in left shoulder] Episodic Other screening for suspected conditions (not mental disorders or infectious disease) (2 sources) Encounter for screening mammogram for malignant neoplasm of breast; Translations: [Encounter for screening mammogram for malignant neoplasm of breast] Onset: 04-03-2024 Episodic Substance-related disorders (2 sources) Smoker; Translations: [Nicotine dependence, unspecified, uncomplicated] Onset: 03-22-2025 09-13-2021 Chronic Thyroid disorders (1 source) Hypothyroidism; Translations: [Hypothyroidism, unspecified] Onset: 10-11-2007 09-21-2014 Chronic Thyroid disorders (1 source) Disorder of thyroid gland; Translations: [Disorder of thyroid, unspecified] 09-23-2021 Episodic Past or Other Problems Problem Classification Problem Date Documented Da te Episodic/Chronic Other lower respiratory disease (1 source) Nodule of lung; Translations: [Solitary pulmonary nodule] Onset: 12-07-2013 06-13-2014 Episodic Other nutritional; endocrine; and metabolic disorders (1 source) Weight gain; Translations: [Abnormal weight gain] Onset: 12-07-2013 09-21-2014 Episodic Other skin disorders (1 source) Neck swelling; Translations: [Localized swelling, mass and lump, neck] Onset: 09-21-2014 09-21-2014 Episodic Residual codes; unclassified (1 source) Tobacco user; Translations: [Tobacco use] Onset: 12-07-2013 10-20-2021 Episodic Results Test Name Value Interpretation Reference Range Facil ity Dexa Bone Density Studyon Dexa Bone Density Study [facility] [address] [place], [place] [address] Dexa Bone Density Study MR#: [id number] Acct: [id number] Name: JOLLY WALDEN Rep #: [id number] : 1950 F 73 From: Gian becker MD PCP: Dr. Jed Schneider MD Status: [facility] Study: Dexa Bone Density Study Date of Exam: 03/28/24 Exam# [id number] Ordering Dr: Jed Schneider D [id number] STUDY: DUAL ENERGY X-RAY ABSORPTIOMETRY / DXA REASON FOR EXAM: Female, 73 years old. [id number] TECHNIQUE: Bone Mineral Density (BMD) measurements of lumbar spine and bilateral hips were obtained. COMPARISON: Comparison is made with prior study dated September 25, 2021. FINDINGS: Lumbar Spine (L1-L4): g/cm2 (0.920) / T-score (-1.2) / Z-score (1.3) Findings are suggestive of osteopenia with a low fracture risk. Left Femur Total: g/cm2 (0.848) / T-score (-0.8) / Z-score (1.0) Left Femoral Neck: g/cm2 (0.631) / T-score (-2.0) / Z-score (0.1) Right Femur Total: g/cm2 (0.834) / T-score (-0.9) / Z-score (0.9) Right Femoral Neck: g/cm2 (0.644) / T-score (-1.8) / Z-score (0.3) The T-Scores on the most recent prior examination were: Lumbar Spine (L1-L4): There has been worsening of bone density since the previous examination. Left Femur Total: which represents a worsening of 2.5%. Right Femur Total: which represents a worsening of 2.6%. BD/Dexa Bone Density Study IMPRESSION: The patient is considered osteopenic as outlined below according to World [place] Organization (WHO) criteria with a moderate fracture risk. There has been worsening of bone density since the previous examination. Reference Information: The T-score is the number of standard deviations above or below the standard which is normal for young adults at their peak bone mineral density. The World Health Organization (WHO) interprets the T-scores as follows: Above -1 Normal bone density Between -1 and -2.5 Osteopenia Equal to / or below -2.5 Osteoporosis As a practical clinical guideline, osteopenia may be graded as follows: Mild -1 through -1.5 Moderate -1.6 through -2.0 Severe -2.1 through -2.4 The Z-score is the number of standard deviations above or below age-matched controls. A Z-score of less than -1.5 would be considered abnormal. References: 1. NIH Osteoporosis and Related Bone Diseases www osteo.org 2. International Society for Clinical Densitometry www iscd.org 3. National Osteoporosis Foundation www nof.org Electronically Signed: Gian Ferrer MD at 8:31 EDT , CC: Dr. Jed Schneider MD Industrial Custodian: Signed Normal [facility] SCRN MAMM (CAD)W/HUMERA BILATo n 03-28-2024 SCRN MAMM (CAD)W/HUMERA BILAT [facility] Services [address], [place] [id number] SCRN MAMM (CAD)W/HUMERA BILAT MR#: [id number] Acct: [id number] Name: JOLLY WALDEN Rep #: [id number] : 1950 F 73 From: Gian becker MD PCP: Dr. Jed Schneider MD Status: [facility] Study: SCRN MAMM (CAD)W/HUMERA BILAT Date of Exam: 02/15 Exam# [id number] Ordering Dr: Jed Schneider [id number] MAMMOGRAPHY - BILATERAL SCREENING REASON FOR EXAM: Female, 73 years old. Routine annual screening examination. PERTINENT HISTORY: Non-contributory. TECHNIQUE: Digital bilateral breast humera (3D mammographic acquisition) in the CC and MLO projections. 2-D mediolateral oblique (MLO) and craniocaudad (CC) views of both breasts were obtained. CAD: Full Field Digital Mammography with Computer Added Detection was performed. COMPARISON: Comparison is made with prior study March 12, 2023 and September 25, 2021. FINDINGS: Breast Composition: The breasts are heterogeneously dense, which may obscure small masses. There are no dominant masses or suspicious calcifications. Stable 1 cm densely calcified nodule in the upper central portion of the left breast suggestive of a calcified fibroadenoma. Stable bilateral axillary lymph nodes. No other significant abnormalities are identified. There has been no significant change since the prior study. BI/SCRN MAMM (CAD)W/HUMERA BILAT IMPRESSION: Stable bilateral screening mammogram. Yearly follow-up mammogram recommended. (A) ASSESSMENT CATEGORY: BIRADS Category 2: Benign. A letter regarding these results will be sent to the patient by the facility within 30 days. Approximately 10% of breast cancers are not detected by mammography. A normal mammogram should not delay biopsy of a clinically suspicious abnormality. [id number] Electronically Signed: Gian Ferrer MD at 8:31 EDT , CC: Dr. Jed Schneider MD Industrial Custodian: Signed [facility] CNOVon 06-20-2022 CNOV Office Visit ([facility]WSTR ) HUGH WALDEN ([id number]) 1950 F Date Time Provider Department 06/20/22 12:30 PM CORA ARANGO [facility] During your visit today, we recorded the following information about you: Temperature Pulse Respiration Blood pressure 97.7 degrees 77/minute 18/minute 138/86 Weight 63.5 kg Cora Arango APRN.CNP 06/20/2022 12:54 PM Signed Patient arrived to express care for evaulation of shoulder, she was not told til roomed that she could not get an xray until Wednesday. Patient elected not to be seen due to no xray. Cora Arango APRN.CNP Referring Provider: SELF [200] Allergies As of Date: 06/20/2022 Noted Allergy Reaction CONTRAST DYE 08/14/2005 4 - Hives Date Reviewed: 06/20/2022 Reviewed by: Cora Arango APRN.ASSISTANT STORE MANAGER TRAINEE - Fully Assessed Reason for Visit: Shoulder Injury [1216] Cmt: Shoulder pain, decreased range of motion x today Primary Visit Diagnosis:Acute pain of left shoulder [M25.512] Prescriptions as of 06/20/2022 - albuterol HFA (PROVENTIL HFA, VENTOLIN HFA) 90 mcg/actuation inhaler Inhale 2 Puffs as instructed every 4 hours as needed. - guaiFENesin (MUCINEX) 600 mg 12 hr tablet Take 2 tablets by mouth twice daily. Meds Comments as of 10/30/2014: No Rx, routine otc or supplement October 30, 2014 Problem List As Of Date 06/20/2022 Noted Resolved Unspecified hypothyroidism [E03.9] 10/11/2007 Other and unspecified hyperlipidemia [E78.5] 10/11/2007 Tendinitis [M77.9] 12/07/2013 09/21/2014 Weight gain [R63.5] 12/07/2013 Tobacco abuse disorder [Z72.0] 12/07/2013 Lung nodule [R91.1] 12/07/2013 Neck swelling [R22.1] 09/21/2014 Encounter Status:Closed by CORA ARANGO on 06/20/22 Normal [facility] Vital Signs Date Time Vital Sign Value Performing Clinician Faci lity 06-20-2022 12:38-0400 Body temperature 97.7 [degF] Cora Arango ELASTIC TAPE INSERTER.ASSISTANT STORE MANAGER TRAINEE Work Phone: [facility] 06-20-2022 12:38-0400 Body weight 63.5 kg Cora Arango ELASTIC TAPE INSERTER.ASSISTANT STORE MANAGER TRAINEE Work Phone: [facility] 06-20-2022 12:38-0400 Diastolic blood pressure 86 mm[Hg] Cora Arango ELASTIC TAPE INSERTER.ASSISTANT STORE MANAGER TRAINEE Work Phone: [facility] 06-20-2022 12:38-0400 Heart rate 77 /min Cora Arango ELASTIC TAPE INSERTER.ASSISTANT STORE MANAGER TRAINEE Work Phone: [facility] 06-20-2022 12:38-0400 Respiratory rate 18 /min Cora Arango ELASTIC TAPE INSERTER.ASSISTANT STORE MANAGER TRAINEE Work Phone: [facility] 06-20-2022 12:38-0400 SaO2% (BldA) [Mass fraction] 98 % Cora Arango ELASTIC TAPE INSERTER.ASSISTANT STORE MANAGER TRAINEE Work Phone: [facility] 06-20-2022 12:38-0400 Systolic blood pressure 138 mm[Hg] Cora Arango ELASTIC TAPE INSERTER.ASSISTANT STORE MANAGER TRAINEE Work Phone: [facility] Encounters Encounter Date Encounter Type Care Provider Facility Start: 04-05-2025 ambulatory [facility] Faci lity:[facility] Start: 03-28-2024 End: 03-28-2024 ambulatory [facility] Facility:[facility] Start: 03-12-2023 End: 03-12-2023 ambulatory [facility] Work Phone: Start: 03-12-2023 End: 03-12-2023 Patient encounter procedure [facility]-Cat Scan, [facility] Start: 06-20-2022 End: 06-20-2022 Patient encounter procedure Corazurdo Taylorluiza AMBRIZ Work Phone: [facility] Comment on above: Acute pain of left s houlder (Primary Dx) Procedures Date Procedure Procedure Detail Performing Clinician Start: 03-12-2023 CT of chest Start: 03-12-2023 Screening mammography Start: 01-12-2014 Mammography Cora Arango APRN.CNP Work Phone: Start: 06-24-2010 Colonoscopy Cora Arango APRN.CNP Work Phone: H/O: surgery History of basal cell carcinoma excision Plan of Treatment Date Care Activity Detail Author Start: 12-07-2023 Urine microalbumin profile DTA P,TDAP,TD (2 - Td or Tdap) [facility] Start: 06-25-2022 Influenza vaccination INFLUENZA (#1) [facility] Start: 10-25-2021 ADVANCE DIRECTIVE DISCUSSION ADVANCE DIRECTIVE DISCUSSION [facility] Start: 12-07-2018 LIPID SCREEN LIPID SCREEN [facility] Start: 12-07-2016 DIABETES SCREEN DIABETES SCREEN [facility] Start: 01-12-2015 Mammography MAMMOGRAM [facility] Start: 12-07-2014 PNEUMOCOCCAL: 65+ (2 - PCV) PNEUMOCOCCAL: 65+ (2 - PCV) [facility] Start: 06-24-2011 Colonoscopy COLONOSCOPY [facility] Start: 06-24-2011 COLORECTAL CANCER SCREENING COLORECTAL CANCER SCREENING [facility] Start: 1998 Influenza vaccination LUNG CANCER [facility] Start: 1998 SHINGRIX VACCINE (1 of 2) SHINGRIX V ACCINE (1 of 2) [facility] Start: 1993 COLOGUARD (FIT-DNA) COLOGUARD (FIT-D NA) [facility] Start: [address] COLONOGRAPHY [facility] Start: 1993 FECAL OCCULT BLOOD FECAL OCCULT BLOO D [facility] Start: 1993 SIGMOIDOSCOPY SIGMOIDOSCOPY [facility] Start: 1966 ANNUAL PCP TEAM EMS MANAGER ANIBAL DISEASE VISIT ANNUAL PCP TEAM CHRONIC DISEASE VISIT [facility] Start: 1966 HEPATITIS C SCREENING HEPATITIS C [facility] Start: 1960 Adult depression scr [facility] assessment DEPRESSION SCREENING [facility] Start: 03-12-1949 COVID-19 VACCINE (#1) COVID-19 VACCI NE (#1) [facility] Immunizations Immunization Date Immunization Notes Care Provider Rosales khadijahchelita 12-07-2013 pneumococcal polysaccharide vaccine, 23 valent Cora Arango ELASTIC TAPE INSERTER.ASSISTANT STORE MANAGER TRAINEE Work Phone: [facility] 12-07-2013 tetanus toxoid, redu cookie diphtheria toxoid, and acellular pertussis vaccine, adsorbed Cora Arango ELASTIC TAPE INSERTER.ASSISTANT STORE MANAGER TRAINEE Work Phone: [facility] Payers Date Payer Category Payer Medicare [id number] 2024 Self-pay [id number] 2022 Unknown ANTHEM [facility] ANTHEM MEDIBLUE O [id number] 2022-Present [phone] [address] [place] [id number] O [id number] Medicare MEDICARE PART A B [id number] Medicare MEDICARE A ONLY [id number] Unknown ANTHEM [id number] Unknown [id number] Unknown [id number] Social History Date Type Detail Facility Start: 10-30-1994 [facility] Start: 10-30-1994 History of tobacco use Cigarette Smo ker [facility] Start: 06-20-2022 Cigarettes smoked current (pack per day) - Reported 0.5 [facility] Start: 06-20-2022 Tobacco use and exposure Smokeless tobacco non-user [facility] Start: 06-20-2022 Alcohol intake Current non-dr loss prevention consultant of alcohol (finding) [facility] Start: 1950 Sex Assigned At Not on file [facility] Start: 06-10-2022 End: 06-20-2022 Exposure to SARS-CoV-2 (event) Unable to assess [facility] Work Phone: Start: 10-14-2021 Tobacco smoking stat us ORIS Unknown if ever smoked [facility] Start: 11-22-2013 None [facility] Start: 1950 Sex Assigned At Female [facility] Progress note 06-20-2022 Note Date & Type Note Facility 06-20-2022 Note HNO ID: [id number] Author: Cora Arango APRN.CNP Service: ? Author Type: Nurse Practitioner Type: Progress Notes Filed: 06/20/2022 12:54 PM Note Text: Patient arrived to express care for evaulation of shoulder, she was not told til roomed that she could not get an xray until Wednesday. Patient elected not to be seen due to no xray. Cora Arango APRN.CNP [facility] History of Present illness Narrative 06-20-2022 Cora Arango APRN.CNP - 06/20/2022 12:52 PM EDT Note Date & Type Note Facility 06-20-2022 History of Presen t illness Narrative Patient arrived to express care for evaulation of shoulder, she was not told til roomed that she could not get an xray until Wednesday. Patient elected not to be seen due to no xray. Cora Arango APRN.CNP documented in this encounter [facility] History of Past illness Narrative 12-07-2013 Note Date & Type Note Facility 12-07-2013 History of Past i llness Narrative Problem Noted Date Resolved Date Tendinitis 12/07/2013 09/21/2014 Last Assessment & Plan: Went to [place] brought new shoes, And used new shoes, she wore them a couple days got severe stiffness and soreness. The heels were not right In the new balance shoes and now she cannot get it to calm down. At urgent care she was told to do some stretches but that did not help her much. She wants to try out stuff by herself. documented as of this encounter (statuses as of 06/20/2022) [facility] Evaluation note Note Date & Type Note Facility Evaluation note Diagnosis Acute pain of left shoulder- Primary documented in this encounter [facility] Evaluation note Note Date & Type Note Facility Evaluation note No assessment information availa [facility] Work Phone: Summary Purpose Family History No Family History Records Found Relationship Condition Age at Onset Recorded Date/T francisco Not Specified Malignant neoplasm of ovary Unknown Cardiac disease Unknown Malignant neoplasm Unknown Hypertension Unknown Disorder of thyroid Unknown Advance Directives No Advanced Directives Records Found Advance Directive Response Recorded Date/ Time Advance Directives No November 22, 2013 1:50am Living Will No March 10, 2019 9 :22pm Power of Sports Equipment Repairer No March 10, 2019 9:22pm Chief Complaint and Reason for Visit Chief Complaint TOBACCO ABUSE Additional Source Comments Source Comments (unrecognize d section and content) In the event this informatio n is protected by the Federal Confidentiality of Alcohol and Drug Abuse Patient Records regulations: The Federal rules restrict any use of the information to criminally investigate or prosecute any alcohol or drug abuse patient.[facility] Reason for Visit (unrecogniz ed section and content) Reason Comments Shoulder Injury Shoulder pain, decre ased range of motion x today Care Teams (unrecognized sec tion and content) Double End Tenon Operator Relationship Specialty Start Date End Date Jed Schneider MD [address] [place] [id number] PCP - General Family Practice 03/10/19 Team Status: Active Member Role Status Dates Dr. Marshall Schneider MD Family Provider Active Dr. Marshall Schneider MD Primary Care Provider Activ e Team Status: Inactive Member Role Status Dates Dr. Marshall Schneider MD Primary Care Provider, Attending Provider, Referring Provider Active INFORMATION SOURCE (unrecogn ized section and content) DATE CREATED AUTHOR 06/21/2022 [facility] DATE CREATED AUTHOR AUTHOR'S ORGANIZ ATION 03/24/2025 [facility] Goals (unrecognized section and content) Goals may be documented in a n alternate section FOR RECORDS PERTAINING TO PATIENTS WHO ARE OR HAVE BEEN ENROLLED IN A CHEMICAL DEPENDENCY/SUBSTANCEABUSE PROGRAM, SOME INFORMATION MAY BE OMITTED. This clinical summary was aggregated from multiple sources. Caution should be exercised in using it in the provision of clinical care. This summary normalizes information from multiple sources, and as a consequence, information in this document may materially change the coding, format and clinical context of patient data. In addition, data may be omitted in some cases. CLINICAL DECISIONS SHOULD BE BASED ON THE PRIMARY CLINICAL RECORDS. [facility] [employer] [facility]. provides no warranty or guarantee of the accuracy or completeness of information in this document.
--- NOTE | 2025-04-05 08:50 | BI_ITS ---
EXAM: SCRN MAMM (CAD)W/HUMERA BILAT DATE: 04/05/2025 CLINICAL HISTORY: F, Age 74 y/o , SCREENING No family history. BREAST CANCER RISK ASSESSMENT: Not assessed. TECHNIQUE: Bilateral screening digital breast tomosynthesis with 2D and 3D images. Computer aided detection. COMPARISON: Prior exam(s) dated prior study dated March 28, 2024.. FINDINGS: TISSUE DENSITY: The breast tissue is heterogenously dense, which may obscure small masses. Bilateral Breast Mammographic Findings: No significant masses, calcifications or other abnormalities are identified. Stable densely calcified nodule in the upper slightly medial portion of the left breast. No suspicious masses, areas of developing architectural distortion, or suspicious calcifications. There has been no significant interval change. BI/SCRN MAMM (CAD)W/HUMERA BILAT IMPRESSION: OVERALL FINAL ASSESSMENT: BIRADS 2 BENIGN FINDING RECOMMENDATION: Routine annual follow-up in 1 Year A letter with findings and recommendations will be mailed to the patient. Reading Location: [place] [address]
== END | disposition home or self-care (01) ==
LOC: CT 08:04
PROVIDERS: PCP Family Medicine; Referring Provider Family Medicine; Visit Provider Family Medicine
DX: Z12.2 Encounter for screening for malignant neoplasm of respiratory organs (principal); Z12.31 Encounter for screening mammogram for malignant neoplasm of breast; F17.210 Nicotine dependence, cigarettes, uncomplicated
CPT/HCPCS: 71271; 77063; 77067

== ENCOUNTER 2025-08-31 09:17 | Observation (INO) | payer MEDICARE, SELFPAY ==
[2025-08-31 09:17] VITALS: BP 143/60; PULSE 71; RESP 16; TEMP 36.3; O2SAT 99
[2025-08-31 09:25] VITALS: BMI 25.8
--- NOTE | 2025-08-31 09:28 | ED.VIS.LOWEX ---
HPI History of Present Illness Chief Complaint: Lower Extremity Injury Informant: patient and family Narrative Narrative: 74-year-old female presenting to the emergency room for left ankle injury. Patient states that she missed stepped today, and on the stairs and states that she was in a forced plantarflexion. She notes pain and swelling to the medial malleolus. She denies any other injuries. She denies hitting her head neck or back. [facility] Medical History Basal cell carcinoma of right forehead Wears dentures Cancer History of renal disease History of stress test Smoker Basal cell carcinoma of scalp Thyroid disease High blood pressure Home Medications ?Medication ?Instructions ?Recorded ?Last Taken ?Type fluticasone propionate 50 2 spray intranasal DAILY 09/11/21 Unknown History mcg/actuation nasal spray,suspension lisinopril 20 mg tablet 20 mg PO DAILY 09/11/21 Unknown History L.acidophil,salivari-Bifido 1 cap PO DAILY #10 caps 09/29/21 Unknown Rx bifidum-Strep thermoph 175 mg capsule (Acidophilus Probiotic Blend) oxycodone-acetaminophen 5 mg-325 1 tab PO Q6H PRN pain (scale score 09/29/21 Unknown Rx mg tablet (Percocet) 7-10) 7 days #28 tabs Allergy/AdvReac Type Severity Reaction Status Date / Time iodine Allergy Severe Swelling Verified 08/31/25 09:20 and Hives Family History Other Cancer Heart disease Hypertension Ovarian cancer Thyroid disorder Surgical History History of basal cell carcinoma excision History of thyroid surgery History of tubal ligation History of hysterectomy History of knee surgery Social History Smoking Status: Current every day smoker tobacco type: cigarettes alcohol intake: never substance use type: does not use additional social history: Does Take Aspirin As Needed Does Take Ibuprofen As Needed ROS ROS ED Constitutional Constitutional ED: Denies chills, fever(s) or weight loss Eyes Eyes: Denies change in vision or diplopia ENT ENT ED: Denies ear pain, rhinorrhea or sore throat Cardiovascular Cardiovascular: Denies chest pain, orthopnea, palpitations or racing heartbeat Respiratory/Chest Respiratory/Chest: Denies cough, dyspnea or orthopnea Gastrointestinal Gastrointestinal: Denies abdominal pain, diarrhea, nausea or vomiting Genitourinary Genitourinary ED: Denies dysuria, hematuria or urinary frequency Musculoskeletal Musculoskeletal: Reports other Details: L ankle injury see HPI ; Denies arthralgias or myalgias Integumentary Denies abscess or rash Neurologic Neurologic: Denies headache(s) or weakness Psychiatric Psychiatric: Denies anxiety, depression, suicidal ideation or suicidal thoughts Endocrine Endocrinology: Denies polydipsia, polyphagia or polyuria Allergic/Immunologic Allergic/Immunologic ED: Denies mouth swelling, tongue swelling or urticaria EXAM Physical Exam Const Vital Signs: 08/31/25 09:17 Temperature 97.4 F L Temperature Source Temporal Pulse Rate 71 Respiratory Rate 16 Blood Pressure 143/60 H Blood Pressure Mean 87 Pulse Ox 99 Oxygen Delivery Method Room Air Positive well nourished and well developed General Appearance ED: well developed and NAD HEENT Reports normocephalic, head/scalp atraumatic and moist mucous membranes Eyes PERRL and EOMs intact bilaterally Neck full ROM, no lymphadenopathy, supple and no JVD Resp normal respiratory effort and clear to auscultation bilaterally Cardio regular rate, regular rhythm and no murmurs GI normal to inspection, nondistended, normoactive bowel sounds and non-tender Palpation: soft Back/Spine no CVA tenderness and normal ROM Extremity Extremity Narrative: Tender to palpation over the medial malleolus. There is mild swelling over the medial and lateral malleolus. The Achilles palpates functionally appears intact. There is no fifth metatarsal tenderness. There is no fibular head tenderness. No tibial shaft tenderness. Neurovascular the patient is intact. General Extremety ED: Negative for edema General Extremity: Negative for edema Neuro oriented x3 and CN's II-XII intact bilaterally Sensorium / Orientation: alert Motor Exam: strength 5/5 throughout Psych mental status grossly normal Mood & Affect: Negative for depressed or tearful Skin no rashes or lesions noted and no wounds MDM MDM MDM Narrative Medical decision making narrative: Differential diagnosis includes ligamentous injury tendon injury fracture neurovascular injury compartment syndrome My independent interpretation of the plain films of the left ankle is a acute bimalleolar fracture. Patient received a dose of pain medication. She was placed in a well-padded Ortho-Glass posterior and stirrup splint made by this physician. Neurovascular intact pre and post application. Patient did well on crutches. I spoke with Dr Schmid from podiatry. This is a surgical case. Plan of care is to admit the patient into the hospital and plan for operative management tomorrow. History & Record Review Discussion w/independent historian: Patient and Family Lab Data Attestation: I reviewed the patient's lab results. Radiography Diagnostic Testing: Clinical Impression(s) from Imaging Studies Ankle X-Ray 08/31/25 09:30 IMPRESSION: Nondisplaced transverse fracture of the distal fibula just proximal to the lateral malleolus. Nondisplaced oblique fracture of the posterior malleolus of the distal tibia. Asymmetry of the ankle mortise. Soft tissue swelling. Reading Location: [facility] EKG Initial EKG: Attestation: I personally reviewed and interpreted this EKG as follows: Comments: Normal sinus rhythm ventricular rate of 65 bpm Management Discussion w/another healthcare provider: [employer] (Dr Schmid (foot and ankle)) Discharge Plan Dx/Rx/DC Orders Clinical Impression: Bimalleolar fracture of left ankle, Fall Disposition Disposition: Acute Care [facility]
--- NOTE | 2025-08-31 09:30 | RAD_ITS ---
PROCEDURE: ANKLE MIN 3 VIEWS 08/31/2025 REASON FOR EXAM: INJURY TECHNIQUE: Procedure Code: RADANK Modality: DX Procedure: ANKLE MIN 3 VIEWS Laterality: Left ankle COMPARISON: None FINDINGS: Bones: Nondisplaced transverse fracture of the distal fibula. Nondisplaced oblique fracture of the posterior malleolus of the distal tibia. Joints: Asymmetry of the ankle mortise. Soft tissues: Soft tissue swelling. Other: RAD/Ankle min 3 Views IMPRESSION: Nondisplaced transverse fracture of the distal fibula just proximal to the late ral malleolus. Nondisplaced oblique fracture of the posterior malleolus of the distal tibia. Asymmetry of the ankle mortise. Soft tissue swelling. Reading Location: [facility]
--- OUTSIDE RECORDS SUMMARY | 2025-08-31 10:36 | XMS RPT_ITS | CCD ---
Author Organization [facility] Care Team Providers Care [employer] Operator Name Role Phone Jed Schneider MD Primary Care Provider Jennie GANDHI, Dr. Adkins Primary Care Provider Jennie GANDHI, Dr. Adkins Attending Provider [phone] Dr. Jed Schneider MD Referring Provider Jed Schneider Referring Unavailable Jed Schneider Attending Unavailable Jed Schneider Primary Care Unavailable Allergies Allergy Classification Reported Allergen(s) Allergy Type Date of Onset Reaction(s) Facility (1 source) Contrast media Drug Allergy 5 [facility] (2 sources) Iodine Drug Allergy 1 [facility] (1 source) Iodine Drug Allergy 1 [facility] Repository Medications Current Medications Medication Drug Class(es) Dates Sig (Normalized) Sig (Original) acetaminophen 325 mg / oxyCODONE hydrochloride 5 mg oral tablet (2 sources) Opioid Agonist Start: 09-29-2021 take 7-10 tablets by mouth every six hours as needed for pain Oxycodone-Acetamin ophen (Percocet) 5-325 mg tablet Active 1 {tbl} PO EVERY 6 HOURS as needed for pain (scale score 7-10) 28 7 September 29, 2021 28 tabs (twenty-eight) fluticasone propionate 0.05 mg/actuat metered dose nasal spray (2 sources) Corticosteroid Start: 09-11-2021 Fluticasone Propionate 50 mcg/actuation spray,suspension Active 2 NMA INTRANASAL DAILY September 11, 2021 1:00am administer into each nostril Start: 09-11-2021 take 1 spray(s) nasa l route once daily Fluticasone Propionate Active 2 SPRAY INTRANASAL DAILY September 11, 2021 1:00am administer into each nostril L.Acidoph,Saliva-B.Bif-S.The rm (Acidophilus Probiotic Blend) 175 mg capsule (2 sources) Start: 09-29-2021 take 1 capsule by mouth once daily L.Acidoph,Saliva-B.Bif-S.Therm (Acidophilus Probiotic Blend) 175 mg capsule Active 1 NMA PO DAILY September 29, 2021 1:00am Start: 09-29-2021 take 1 capsule by mouth once daily L.Acidoph,Saliva-B.Bif-S.Therm (Acidophi flako Probiotic Blend) 175 mg capsule Active 1 CAP PO DAILY September 29, 2021 1:00am lisinopril 20 mg oral tablet (2 sources) Angiotensin Converting Enzyme Inhibitor Start: 09-11-2021 take 1 tablet by mouth once daily Lisinopril 20 mg tablet Active 20 mg PO DAILY September 11, 2021 1:00am Completed/Discontinued Medications Medication Drug Class(es) Dates Sig (Normalized) Sig (Original) acetaminophen 325 mg / HYDROcodone bitartrate 5 mg oral tablet (2 sources) Opioid Agonist Start: 03-10-2019 End: 03-12-2019 Hydrocodone-Acetami nophen 1 TABLET tablet Discontinued 1 {tbl} PO EVERY 4 HOURS NEEDED as needed for Pain 12 March 10, 2019 12:00am March 11, 2019 12:00am March 12, 2019 12:07am Start: 03-10-2019 End: 03-12-2019 take 1 tablet by mouth every four hours as needed Hydrocodone-Acetaminophen Discontinued 1 TABLET PO EVERY 4 HOURS NEEDED 12 March 10, 2019 12:00am March 12, 2019 12:07am [id number] 200 actuat albuterol 0.09 mg/actuat metered dose inhaler (1 source) beta2-Adrenergic Agonist Start: 11-17-2019 take 2 puff(s) by inhalation every four hours as needed albuterol HFA (PROVENTIL HFA, VENTOLIN HFA) 90 mcg/actuation inhaler Indications: Bronchitis Inhale 2 Puffs as instructed every 4 hours as needed. 1 Inhaler 0 11/17/2019 Active Comment on above: Inhale 2 Puffs as instructed every 4 mary jane rs as needed. clindamycin 300 mg oral capsule (2 sources) Lincosamide Antibacterial Start: 09-29-2021 End: 10-07-2021 take 1 capsule by mouth three times daily Clindamycin Hcl (Cleocin Hcl) 300 mg capsule Discontinued 300 mg PO THREE TIMES A DAY 12 4 September 29, 2021 1:00am October 07, 2021 3:15pm 12 hr guaiFENesin 600 mg extended release oral tablet (1 source) Start: 11-17-2019 take 2 tablets by mouth twice daily guaiFENesin (MUCINEX) 600 mg 12 hr tablet Indications: Bronchitis Take 2 tablets by mouth twice daily. 30 tablet 0 11/17/2019 Active Comment on above: Take 2 tablets by mouth twice daily. Problems Active Problems Problem Classification Problem Date Documented Date Episodic/Chronic Calculus of urinary tract (2 sources) Kidney stone; Translations: [Calculus of kidney] 11-21-2013 Episodic Disorders of lipid metabolism (1 source) Hyperlipidemia; Translations: [Hyperlipidemia, unspecified] Onset: 10-11-2007 09-21-2014 Chronic Essential hypertension (2 sources) Hypertensive disorder; Translations: [Essential (primary) hypertension] 09-11-2021 Chronic Other nervous system disorders (2 sources) Acute postoperative pain; Translations: [Other acute postprocedural pain] 09-29-2021 Episodic Other non-epithelial cancer of skin (4 sources) Basal cell carcinoma of scalp; Translations: [Basal cell carcinoma of skin of scalp and neck] 10-01-2021 Episodic Comment on above: 1.2 cm basal cell ca rcinoma right anterofrontal scalp near the hairline with inferior extension onto the forehead Other non-traumatic joint disorders (1 source) Shoulder pain; Translations: [Pain in left shoulder] Episodic Other screening for suspected conditions (not mental disorders or infectious disease) (1 source) Encounter for screening for malignant neoplasm of respiratory organs; Translations: [Encounter for screening for malignant neoplasm of respiratory organs] Onset: 04-11-2025 Episodic Substance-related disorders (2 sources) Smoker; Translations: [Nicotine dependence, unspecified, uncomplicated] 09-13-2021 Chronic Thyroid disorders (1 source) Hypothyroidism; Translations: [Hypothyroidism, unspecified] Onset: 10-11-2007 09-21-2014 Chronic Thyroid disorders (2 sources) Disorder of thyroid gland; Translations: [Disorder of thyroid, unspecified] 09-23-2021 Episodic Comment on above: had thyroid removed and it grew back, no need for levothyroxine Past or Other Problems Problem Classification Problem [...] Name Value Interpretation Reference Range Facil ity Breast imaging reportOrdered By: Gian Ferrer on 04-05-2025 Study report [facility] Imaging Services [address], [place] [id number] SCRN MAMM (CAD)W/HUMERA BILAT MR#: [id number] Acct: [id number] Name: JOLLY WALDEN Rep #: [id number] : 1950 F 74 From: Az Ferrer MD PCP: Dr. Jed Schneider MD Status: [facility] Study:SCRN MAMM (CAD)W/HUMERA BILAT Date of Exa m: 04/05/25 Exam# [id number] Ordering Dr: Gerardo Schneider MD EXAM: SCRN MAMM (CAD)W/HUMERA BILAT DATE: 04/05/2025 CLINICAL HISTORY: F, Age 74 y/o , SCREENING No family history. BREAST CANCER RISK ASSESSMENT: Not assessed. TECHNIQUE: Bilateral screening digital breast tomosynthesis with 2D and 3D images. Computeraided detection. COMPARISON: Prior exam(s) dated prior study dated March 28, 2024.. FINDINGS: TISSUE DENSITY: The breast tissue is heterogenously dense, which may obscure small masses. Bilateral Breast Mammographic Findings: No significant masses, calcifications or other abnormalities are identified. Stable densely calcified nodule in the upper slightly medial portion of the left breast. No suspicious masses, areas of developing architectural distortion, or suspicious calcifications. There has been no significant interval change. BI/SCRN MAMM (CAD)W/HUMERA BILAT IMPRESSION: OVERALL FINAL ASSESSMENT: BIRADS 2 BENIGN FINDING RECOMMENDATION: Routine annual follow-up in 1 Year A letter with findings and recommendations will be mailed to the patient. Reading Location: [place] [address] CC: Dr. Jed Schneider MD ~ Tele Tech: Signed [facility] Low Dose CT Lung Screeningon 04-05-[address] Lung Screening [facility] Imaging Services [address] [place] [id number] Lung Screening MR#: [id number] Acct: [id number] Name: JOLLY WALDEN Rep #: [id number] : 1950 F 74 From: Channing Tan MD PCP: Dr. Jed Schneider MD Status: [facility] CLI Study: Low Dose CT Lung Screening Date of Exam: 04/05 Exam# [id number] Ordering Dr: Jed Schneider EXAM: CT Chest, Lung Cancer Screening Without Intravenous Contrast CLINICAL INDICATION: >30 YEARS TOBACCO TECHNIQUE: Axial computed tomography images of the chest without intravenous contrast using low dose (LDCT) lung cancer screening protocol. This CT exam was performed using one or more of the following dose reduction techniques: automated exposure control, adjustment of the mA and/or kV according to patient size, and/or use of iterative reconstruction technique. COMPARISON: No relevant prior studies available. FINDINGS: LUNGS AND PLEURAL SPACES: Stable atelectasis or scar of the left major fissure measuring up to 8 mm. Stable 3 mm pleural-based nodule of the left upper lobe. Stable 6 mm nodule of the left upper lobe. No significant effusion. No pneumothorax. No new suspicious pulmonary nodules. HEART: Unremarkable. No cardiomegaly. No significant pericardial effusion. No significant coronary artery calcifications. BONES/JOINTS: Unremarkable. No acute fracture. SOFT TISSUES: Unremarkable. VASCULATURE: Unremarkable. No thoracic aortic aneurysm. LYMPH NODES: Unremarkable. No enlarged lymph nodes. OTHER FINDINGS: Prior dated 03/17/2024. CT/Low Dose CT Lung Screening IMPRESSION: 1. No new suspicious pulmonary nodules. 2. LUNG-RADS 2: Benign. Continue low-dose CT screening of the chest in 12 months is recommended. Reading Location: [facility] CC: Dr. Jed Schneider MD Tele Tech: Signed Normal [facility] SCRN MAMM (CAD)W/HUMERA BILATo n 04-05-2025 SCRN MAMM (CAD)W/HUMERA BILAT [facility] Imaging Services [address] [place] [address] SCRN MAMM (CAD)W/HUMERA BILAT MR#: [id number] Acct: [id number] Name: JOLLY WALDEN Rep #: [id number] : 1950 F 74 From: Gian becker MD PCP: Dr. Jed Schneider MD Status: [facility] Study: SCRN MAMM (CAD)W/HUMERA BILAT Date of Exam: 03/25 12/19 Exam# [id number] Ordering Dr: Jed Schneider EXAM: SCRN MAMM (CAD)W/HUMERA BILAT DATE: 04/05/2025 CLINICAL HISTORY: F, Age 74 y/o , SCREENING No family history. BREAST CANCER RISK ASSESSMENT: Not assessed. TECHNIQUE: Bilateral screening digital breast tomosynthesis with 2D and 3D images. Computer aided detection. COMPARISON: Prior exam(s) dated prior study dated March 28, 2024.. FINDINGS: TISSUE DENSITY: The breast tissue is heterogenously dense, which may obscure small masses. Bilateral Breast Mammographic Findings: No significant masses, calcifications or other abnormalities are identified. Stable densely calcified nodule in the upper slightly medial portion of the left breast. No suspicious masses, areas of developing architectural distortion, or suspicious calcifications. There has been no significant interval change. BI/SCRN MAMM (CAD)W/HUMERA BILAT IMPRESSION: OVERALL FINAL ASSESSMENT: BIRADS 2 BENIGN FINDING RECOMMENDATION: Routine annual follow-up in 1 Year A letter with findings and recommendations will be mailed to the patient. Reading Location: [place] [address] CC: Dr. Jed Schneider MD Tele Tech: Signed [facility] LIUon 06-20-2022 CNOV Office Visit (UCWSTR ) IRAMHUGH HERNANDEZ ([id number]) 1950 F Date Time Provider Department 06/20/22 [...] Date Reviewed: 06/20/2022 Reviewed by: Cora Arango APRN.FARM APPRAISER - Fully Assessed Reason for Visit: Shoulder [...] 12:38-0400 Body temperature 97.7 [degF] Cora Arango PLATE EMBOSSER.FARM APPRAISER Work Phone: [facility] 06-20-2022 12:38-0400 Body weight 63.5 kg Cora Arango PLATE EMBOSSER.ELIZA Work Phone: [facility] 06-20-2022 12:38-0400 Diastolic blood pressure 86 mm[Hg] Cora Arango PLATE EMBOSSER.FARM APPRAISER Work Phone: [facility] 06-20-2022 12:38-0400 Heart rate 77 /min Cora Arango PLATE EMBOSSER.FARM APPRAISER Work Phone: [facility] 06-20-2022 12:38-0400 Respiratory rate 18 /min Cora Arango APRN.FARM APPRAISER Work Phone: [facility] 06-20-2022 12:38-0400 SaO2% (BldA) [Mass fraction] 98 % Cora Arango PLATE EMBOSSER.FARM APPRAISER Work Phone: [facility] 06-20-2022 12:38-0400 Systolic blood pressure 138 mm[Hg] Cora Arango PLATE EMBOSSER.FARM APPRAISER Work Phone: [facility] Encounters Encounter Date Encounter Type Care Provider Facility Start: 04-05-2025 End: 04-05-[address] Jed Schneider MD Work Phone: [facility] Work Phone: Start: 04-05-2025 End: 04-05-[address] Jed Schneider MD -Cat Scan [facility] Work Phone: Start: 04-05-2025 End: 04-05-2025 ambulatory Jed Schneider Facility:[facility] Start: 03-12-2023 End: 03-12-2023 ambulatory [facility] Work Phone: Start: 03-12-2023 End: 03-12-2023 Patient encounter procedure [facility]-Cat Scan, [facility] Start: 06-20-2022 End: 06-20-2022 Patient encounter procedure Cora Arango PLATE EMBOSSER.FARM APPRAISER Work Phone: [facility] Care Comment on above: Acute pain of left s houlder (Primary Dx) Procedures Date Procedure Procedure Detail Performing Clinician Start: 04-05-2025 Screening mammography Rubio Schneider MD Work Phone: Start: 04-05-[address] Bryan Schneider MD Work Phone: Start: 03-12-2023 CT of chest Start: 03-12-2023 Screening mammography Start: 01-12-2014 Mammography Cora Conchita PLATE EMBOSSER.FARM APPRAISER Work Phone: Start: 06-24-2010 Colonoscopy Cora Conchita PLATE EMBOSSER.FARM APPRAISER Work Phone: H/O: surgery History of basal cell carcinoma excision Comment on above: excision 1.2 cm basa l cell carcinoma right anterofrontal scalp near hairline with inferior extension onto forehead with right forehead horizontal advancement skin flap reconstruction (13.75 cm2) - 09/29/21 Plan of Treatment Date Care Activity Detail Author Start: 12-07-2023 Urine microalbumin profile DTA P,TDAP,TD (2 - Td or Tdap) [facility] Start: 06-25-2022 Influenza vaccination INFLUENZA (#1) [facility] Start: 10-25-2021 ADVANCE DIRECTIVE DISCUSSION ADVANCE DIRECTIVE DISCUSSION [facility] Start: 12-07-2018 LIPID SCREEN LIPID SCREEN [facility] Start: 12-07-2016 DIABETES SCREEN DIABETES SCREEN [facility] Start: 01-12-2015 Mammography MAMMOGRAM [facility] Start: 12-07-2014 PNEUMOCOCCAL: 65+ (2 - PCV) PNEUMOCOCCAL: 65+ (2 - PCV) [facility] Start: 06-24-2011 Colonoscopy COLONOSCOPY [facility] Start: 06-24-2011 COLORECTAL CANCER SCREENING COLORECTAL CANCER SCREENING [facility] Start: 1998 Influenza vaccination LUNG CANCER 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 Start: 1960 Adult depression scr eening assessment DEPRESSION SCREENING [facility] Start: 03-12-1949 COVID-19 VACCINE (#1) COVID-19 VACCI NE (#1) [facility] Immunizations Immunization Date Immunization Notes Care Provider Rosales urena 12-07-2013 pneumococcal polysaccharide vaccine, 23 valent Cora Arango APRN.CNP Work Phone: [facility] 12-07-2013 tetanus toxoid, redu cookie diphtheria toxoid, and acellular pertussis vaccine, adsorbed Cora Arango APRN.ELIZA Work Phone: [facility] Payers Date Payer Category Payer Self-pay [id number] 2025 Medicare [id number] 2022 Unknown ANTHEM BLUE CROS S AND BLUE SHIELD ANTHEM MEDIBLUE HMO [id number] 2022-[facility] [phone] [address] [place] [address] [facility] [id number] Medicare MEDICARE PART A B [id number] Medicare MEDICARE A ONLY [id number] Unknown LATASHA [id number] Unknown [id number] Social History Date Type Detail Facility Start: 10-14-2021 End: 06-20-2022 Tobacco smoking status NHIS Smokes tobacco daily [facility] Start: 10-30-1994 History of tobacco use Cigarette Smo ker [facility] Start: 06-20-2022 Cigarettes smoked current (pack per day) - Reported 0.5 [facility] Start: 06-20-2022 Tobacco use and exposure Smokeless tobacco non-user [facility] Start: 06-20-2022 Alcohol intake Current non-dr hermosillo of alcohol (finding) [facility] Start: 1950 Sex Assigned At Not on file [facility] Start: 06-10-2022 End: 06-20-2022 Exposure to SARS-CoV-2 (event) Unable to assess [facility] Work Phone: Start: 10-14-2021 Tobacco smoking stat us WIIS Unknown if ever smoked [facility] Start: 11-22-2013 None [facility] Start: 1950 Sex Assigned At Female W [facility] Radiology Diagnostic study note 04-06-2025 Note Date & Type Note Facility 04-06-2025 Radiology Diagnostic study note [facility] Imaging Services [address] [place] [address] Lung Screening MR#: [id number] Acct: [id number] Name: JOLLY WALDEN Rep #: [id number] : 1950 F 74 From: Shawna Tan MD PCP: Dr. Jed Schneider MD Status: REG CLI Study:Low Dose CT Lung Screening Date of Exam : 04/05/25 Exam# [id number] Ordering Dr: Gerardo Schneider MD EXAM: CT Chest, Lung Cancer Screening Without Intravenous Contrast CLINICAL INDICATION: >30 YEARS TOBACCO TECHNIQUE: Axial computed tomography images of the chest without intravenous contrast using low dose (LDCT) lung cancer screening protocol. This CT exam was performed using one or more of the following dose reduction techniques: automated exposure control, adjustment of the mA and/or kV according to patient size, and/or use ofiterative reconstruction technique. COMPARISON: No relevant prior studies available. FINDINGS: LUNGS AND PLEURAL SPACES: Stable atelectasis or scar of the left major fissure measuring up to 8 mm. Stable 3 mm pleural-based nodule of the left upper lobe. Stable 6 mm nodule of the left upper lobe. No significant effusion. No pneumothorax. No new suspicious pulmonary nodules. HEART: Unremarkable. No cardiomegaly. No significant pericardial effusion. No significant coronary artery calcifications. BONES/JOINTS: Unremarkable. No acute fracture. SOFT TISSUES: Unremarkable. VASCULATURE: Unremarkable. No thoracic aortic aneurysm. LYMPH NODES: Unremarkable. No enlarged lymph nodes. OTHER FINDINGS: Prior dated 03/17/2024. CT/Low Dose CT Lung Screening IMPRESSION: 1. No new suspicious pulmonary nodules. 2. LUNG-RADS 2: Benign. Continue low-dose CT screening of the chest in 12 months is recommended. Reading Location: [facility] CC: Dr. Jed Schneider MD ~ Tele Tech: Signed [facility] Progress note 06-20-2022 Note Date & Type Note Facility 06-20-2022 Note HNO ID: [id number] Author: Cora Arango APRN.FARM APPRAISER Service: ? Author Type: Nurse Practitioner Type: Progress Notes Filed: 06/20/2022 12:54 PM Note Text: Patient arrived to express care for evaulation of shoulder, she was not told til roomed that she could not get an xray until Wednesday. Patient elected not to be seen due to no xray. Cora Arango APRN.FARM APPRAISER [facility] History of Present illness Narrative 06-20-2022 Cora Arango APRN.CNP - 06/20/2022 12:52 PM EDT Note Date & Type Note Facility 06-20-2022 History of Presen t illness Narrative [facility], she was not told til roomed that she could not get an xray until Wednesday. Patient elected not to be seen due to no xray. Cora Arango APRN.CNP documented in this encounter [facility] History of Past illness Narrative 12-07-2013 Note Date & Type Note Facility 12-07-2013 History of Past i llness Narrative Problem Noted Date Resolved Date Tendinitis 12/07/2013 09/21/2014 Last Assessment & Plan: Went to [employer] brought new shoes, And used new shoes, [...] of this encounter (statuses as of 06/20/2022) [facility] Evaluation note Note Date & Type Note Facility Evaluation note Diagnosis Acute pain of left shoulder- Primary documented in this encounter [facility] Evaluation note Note Date & Type Note Facility Evaluation note No assessment information availa ble [facility] Work Phone: Reason for referral (narrative) Note Date & Type Note Facility Reason for referral (narrative) No reason for referral information available [facility] Work Phone: Summary Purpose Family History No [...] March 10, 2019 9 :22pm Power of Heel Scourer No March 10, 2019 9:22pm Advance Directive Response Recorded Date/ Time Advance Directives No November 22, 2013 1:50am Chief Complaint and Reason for Visit Chief Complaint TOBACCO ABUSE Chief Complaint Admit Date SMOKER / SCREENING April 05, 2025 8:01 am Additional Source Comments Source Comments (unrecognize d section and content) In the event this informatio n is protected by the Federal Confidentiality of Alcohol and Drug Abuse Patient Records regulations: The Federal rules restrict any use of the information to criminally investigate or prosecute any alcohol or drug abuse patient.[facility] Reason for Visit (unrecogniz ed section and content) Reason Comments Shoulder Injury Shoulder pain, decre ased range of motion x today Care Teams (unrecognized sec tion and content) [employer] Relationship Specialty Start Date End Date Jed Schneider MD [address] [place] [id number] PCP - General Family Practice 03/10/19 Team Status: Active Member Role Status Dates Dr. Marshall Schneider MD Family Provider Active Dr. Marshall Schneider MD Primary Care Provider Activ e Team Status: Inactive Member Role Status Dates Dr. Marshall Schneider MD Primary Care Provider, Attending Provider, Referring Provider Active Team Status: Active Member Role Status Dates Dr. Jed Schneider MD Primary Care Provider Acti ve Team Status: Inactive Member Role Status Dates Dr. Jed Schneider MD Primary Care Provider Acti ve Start: April 05, 2025 End: April 05, 2025 Dr. Jed Schneider MD Attending Provider Active Start: April 05, 2025 End: April 05, 2025 Dr. Jed Schneider MD Referring Provider Active Start: April 05, 2025 End: April 05, 2025 INFORMATION SOURCE (unrecogn ized section and content) DATE CREATED AUTHOR 06/21/2022 [facility] DATE CREATED AUTHOR 'S ORGANIZ ATION 04/14/2025 [facility] Goals (unrecognized section and content) Goals may be documented in a n alternate sectionGoals may be documented in an alternate section FOR RECORDS PERTAINING TO PATIENTS [...] BE BASED ON THE PRIMARY CLINICAL RECORDS. [facility]. provides no warranty or guarantee of the accuracy or completeness of information in this document.
--- NOTE | 2025-08-31 10:59 | EKG12_ITS ---
Test Reason : PRE OP Blood Pressure : */* mmHG Vent. Rate : 65 BPM Atrial Rate : 65 BPM P-R Int : 170 ms QRS Dur : 84 ms QT Int : 394 ms P-R-T Axes : 58 17 40 degrees QTcB Int : 409 ms Normal sinus rhythm Normal ECG Confirmed by Tremayne Flowers ([id number]), industrial editor FAY MEYERS ([id number]) on 09/05/2025 5:49:20 AM Referred By: Confirmed By: Tremayne Flowers
--- NOTE | 2025-08-31 11:04 | CT_ITS ---
PROCEDURE: EXTREMITY LOWER WITHOUT CONTRA 08/31/2025 REASON FOR EXAM: ANKLE FRACTURE TECHNIQUE: Procedure Code: CTELWO Modality: CT Procedure: EXTREMITY LOWER WITHOUT CONTRA Coronal and Sagittal reconstruction series were provided. CONTRAST: None One or more dose reduction techniques were used (e.g., Automated exposure control, adjustment of the mA and/or kV according to patient size, use of iterative reconstruction technique). RADIATION DOSE SUMMARY: CTDlvol: 15.35 mGy DLP: 476.56 mGycm COMPARISON: Prior radiographs done earlier in the day. FINDINGS: Bones: There is an undisplaced transverse fracture of the distal fibula just proximal to the lateral malleolus. Nondisplaced oblique fracture of the posterior medial malleolus of the distal tibia. Joints: Asymmetry of the ankle mortise. Soft Tissues: Soft tissue swelling. CT/Extremity Lower without Contra IMPRESSION: Nondisplaced transverse fracture of the distal fibula just proximal to the late ral malleolus. Nondisplaced oblique fracture of the posterior medial malleolus of the distal t ibia. Asymmetry of the ankle mortise. Diffuse soft tissue swelling. Reading Location: [id number]
--- NOTE | 2025-08-31 11:05 | PCM.HP.STD ---
HPI - General General Chief Complaint: Left ankle fracture HPI Narrative JOLLY WALDEN, is a 74 F who presented to the ER at [facility] this morning for pain and swelling of left ankle after injury. She injured left ankle on the stairs today, thought she was completely down stairs but was not and landed on left foot/ankle. Left ankle xrays shows ankle fracture, CT has been obtained and noted to have displacement of the lateral malleolus and some gapping of the posterior malleolus. A splint has been applied to her left foot/ankle. She is normally very active. After further discussion with her she would like to proceed with surgical intervention to treat the ankle fracture, with plan to admit her for pain control and ORIF surgery tomorrow morning. She does have a past medical history of hypertension, as well as tobacco use. Her daughter is present with her today. [facility] Medical History Basal cell carcinoma of right forehead Wears dentures Cancer History of renal disease History of stress test Smoker Basal cell carcinoma of scalp Thyroid disease High blood pressure Home Medications ?Medication ?Instructions ?Recorded ?Last Taken ?Type lisinopril 20 mg tablet 20 mg PO DAILY 09/11/21 Unknown History amlodipine 5 mg tablet 5 mg PO DAILY 08/31/25 Unknown History Allergy/AdvReac Type Severity Reaction Status Date / Time iodine Allergy Severe Swelling Verified 08/31/25 09:20 and Hives Family History Other Cancer Heart disease Hypertension Ovarian cancer Thyroid disorder Surgical History History of basal cell carcinoma excision History of thyroid surgery History of tubal ligation History of hysterectomy History of knee surgery Social History Smoking Status: Current every day smoker tobacco type: cigarettes alcohol intake: never substance use type: does not use additional social history: Does Take Aspirin As Needed Does Take Ibuprofen As Needed Vital Signs Vital Signs Vital Signs: 08/31/25 09:17 Temperature 97.4 F L Temperature Source Temporal Pulse Rate 71 Respiratory Rate 16 Blood Pressure 143/60 H Blood Pressure Mean 87 Pulse Ox 99 Oxygen Delivery Method Room Air Weight Weight: 72.7 kg Body Mass Index (BMI) 25.8 Physical Exam Const alert, oriented x3 and no apparent distress Constitutional Narrative: Left ankle is splinted, with splint clean, dry and intact, toes of left foot are viable and are intact, CFT < 2 seconds with skin supple, intact, and normal temperature. Results Lab / Micro Data 08/31/25 11:30 08/31/25 11:30 Imaging Radiology Impression Ankle X-Ray 08/31/25 09:30 IMPRESSION: Nondisplaced transverse fracture of the distal fibula just proximal to the lateral malleolus. Nondisplaced oblique fracture of the posterior malleolus of the distal tibia. Asymmetry of the ankle mortise. Soft tissue swelling. Reading Location: [id number] Assessment & Plan Assessment/Plan (1) Trimalleolar fracture of left ankle: (2) Ankle pain, left: PLAN: Plan Evaluation performed. Reviewed left ankle xrays, and left ankle CT scan. Discussed the options with patient she has elected to proceed with surgical intervention. She will be admitted for pain control and surgical intervention left ankle. Plans are for ORIF left ankle tomorrow AM, needs to be NPO after midnight. No weightbearing left foot, keep left foot elevated. Pain management: Dilaudid, Oxyir, Acetaminophen. DVT Prophylaysis: SCD left with plans to start chemoprophylaxis post op. Hospital medicine consulted, appreciated assistance.
[2025-08-31 11:33] VITALS: BP 126/62; PULSE 62; RESP 16; TEMP 36.3; O2SAT 96
[2025-08-31 11:51] LABS: Hematocrit 41.5 % (37-47); Hemoglobin 14.0 g/dL (12.0-15.0); Immature Granulocytes Count 0.130 X10^3/uL (0.0-0.0); Mean Corp Hgb Conc 33.7 g/dL (32-36); Mean Corpuscular Volume 96.1 fL (81-99); Mean Platelet Vol. 10.5 fl (6.2-12.0); NRBC Flagged by Analyzer 0 % (0-5); Platelet Count 348 K/mm3 (150-450); RBC Distribution Width CV 13.8 % (11.6-14.6); RBC Distribution Width SD 49.0 fl (35.1-43.9); Red Blood Count 4.32 M/mm3 (4.2-5.4); White Blood Count 14.0 K/mm3 (4.4-11.0)
[2025-08-31 11:56] LABS: Prothrombin Time (Protime)PT. 12.9 SECONDS (11.7-14.9)
[2025-08-31 11:57] LABS: Partial Thromboplast Time 28.9 Seconds (24.1-36.2)
--- NOTE | 2025-08-31 12:00 | PN.HOSP_ITS ---
Reason for Visit Chief Complaint: Left ankle fracture Subjective Subjective Patient seen and examined on 08/31. Pt missed a step at home landing awkwardly on her left ankle. She was unable to bear weight and presented to the emergency room. She was found to have a nondisplaced transverse fracture of the distal fibula and non displaced oblique fracture of the posterior medial malleolus of the distal tibia. Patient was admitted to the podiatry service. The hospitalist service was consulted for medical managment. Patient endorse a very good performance status. Denies exertion chest pain nor shortness of breath. Objective Data Objective Data Vital Signs: Vital Signs Temp Pulse Resp BP Pulse Ox O2 Del Method 36.7 C 81 20 H 147/58 H 96 Room Air 09/01/25 07:51 09/01/25 07:51 09/01/25 07:51 09/01/25 07:51 09/01/25 07:51 09/01/25 07:51 Oxygen Delivery Method Room Air Weight: 72.9 kg Body Mass Index (BMI) 25.9 Lab / Micro Data Attestation: I reviewed the patient's lab results. 08/31/25 11:30 08/31/25 11:30 Labs: Laboratory Results - last 24 hr 08/31/25 11:30: WBC 14.0 H, RBC 4.32, Hgb 14.0, Hct 41.5, MCV 96.1, MCH 32.4 H, MCHC 33.7, RDW Std Deviation 49.0 H, RDW Coeff of Jaylen 13.8, Plt Count 348, MPV 10.5, Immature Gran % (Auto) 0.900, Neut % (Auto) 78.4 H, Lymph % (Auto) 15.5 L, Sanborn % (Auto) 4.4, Eos % (Auto) 0.4, Baso % (Auto) 0.4, Absolute Neuts (auto) 10.9 H, Absolute Lymphs (auto) 2.16, Nucleated RBC % 0, PT 12.9, INR 1.0, APTT 28.9, Sodium 140, Potassium 3.7, Chloride 102, Carbon Dioxide 27.2, Anion Gap 11, BUN 12, Creatinine 0.92, Estim Creat Clear Calc 50.59, Est GFR (MDRD) Non-Af 64, BUN/Creatinine Ratio 12.9, Glucose 121 H, Calcium 9.7, Total Bilirubin 0.28, AST 19, ALT 9, Alkaline Phosphatase 90, Total Protein 7.5, Albumin 4.7, Globulin 2.9, Albumin/Globulin Ratio 1.6, Vitamin D 25-Hydroxy 95.7 09/01/25 06:25: TSH 0.567 Radiography Diagnostic Testing: Radiology Impression Ankle X-Ray 08/31/25 09:30 IMPRESSION: Nondisplaced transverse fracture of the distal fibula just proximal to the lateral malleolus. Nondisplaced oblique fracture of the posterior malleolus of the distal tibia. Asymmetry of the ankle mortise. Soft tissue swelling. Reading Location: [id number] Lower Extremity CT 08/31/25 11:04 IMPRESSION: Nondisplaced transverse fracture of the distal fibula just proximal to the lateral malleolus. Nondisplaced oblique fracture of the posterior medial malleolus of the distal tibia. Asymmetry of the ankle mortise. Diffuse soft tissue swelling. Reading Location: [id number] EKG Initial EKG: Attestation: I personally reviewed and interpreted this EKG as follows: Prior EKG tracings: available for review (NSR. no acute changes. ) Social Homelessness:: Sheltered Physical Exam Const alert and no apparent distress Constitutional Narrative: lying in bed, non-toxic. afebrile. Resp normal respiratory effort, no retractions, no use of accessory muscles and clear to auscultation bilaterally Cardio regular rate, regular rhythm, S1 normal heart sound and S2 normal heart sound GI normal to inspection, nondistended, normoactive bowel sounds, soft to palpation, non-tender and non-distended Extremity Extremity Narrative: left ankle casted. Neuro moves all extremities Assessment & Plan Assessment/Plan (1) Trimalleolar fracture of left ankle: PLAN: s/p fall. casted. plans for surgery on 09/01. Patient with good performance status. Medically optimized to proceed with surgery. EKG shows no concerning findings that would warrant additional cardiac work up. Medically stable to proceed with surgery. PLAN: Plan HTN: stable. continue amlodipine and lisinopril Thank you for the consult. The hospitalist service will follow along while the patient is hospitalized. Charges/Coding Visit Charges Inpatient E&M: 52269 Subs Hosp L2
[2025-08-31 12:14] VITALS: BMI 25.1
[2025-08-31 12:29] VITALS: BP 124/63; PULSE 64; RESP 18; TEMP 36.8; O2SAT 94
[2025-08-31 12:59] LABS: AST(SGOT) 19 U/L (<=31); Alanine Aminotransfer ALT/SGPT 9 U/L (<=34); Albumin, Serum 4.7 g/dL (3.4-4.8); Alkaline Phosphatase 90 U/L (35-104); Anion Gap 11 (5-15); BUN 12 mg/dL (4-19); BUN/Creat Ratio 12.9 RATIO (10-20); Calcium,Total 9.7 mg/dL (7.6-11.0); Carbon Dioxide 27.2 mmol/L (21.0-32.0); Chloride 102 mmol/L (98-108); Estimated Creatinine Clearance 50.59 ml/min (50-250); Globulin 2.9 g/dL (2.2-4.2); Glucose 121 mg/dL (70-99); Potassium 3.7 mmol/L (3.3-5.1); Vitamin D,25 Hydroxy 95.7 ng/mL (30-100)
[2025-08-31 14:38] VITALS: BP 111/66; PULSE 72; RESP 18; TEMP 36.9; O2SAT 95
--- NOTE | 2025-08-31 15:51 | CPS ---
pt declined i.s. & pep but explained DB&C and she said she will do the hourly w/a.
[2025-08-31 21:04] VITALS: BP 139/58; PULSE 75; RESP 20; TEMP 36.8; O2SAT 93
[2025-08-31] MEDS: 0.9% Saline Lock 10 ML Syringe IV (21:10)
[2025-08-31 23:13] VITALS: BP 119/61; PULSE 68; RESP 16; TEMP 37.1; O2SAT 96
[2025-09-01] VITALS (15 sets, daily range): BP systolic 99–147; BP diastolic 51–83; PULSE 67–81; RESP 16–20; TEMP 36.1–37.4; O2SAT 90–97; BMI 25.9
--- NOTE | 2025-09-01 07:00 | RAD_ITS ---
EXAM: XR Left Ankle, 2 Views CLINICAL INDICATION: PAIN TECHNIQUE: Frontal and lateral views of the left ankle. COMPARISON: No relevant prior studies available. FINDINGS: BONES/JOINTS: Unremarkable. No acute fracture. No dislocation. SOFT TISSUES: Unremarkable. OTHER FINDINGS: A total of 8 fluoroscopic images were obtained. Total radiation dose 8.6 mGy. Total fluoroscopy time 146.2 seconds. RAD/Ankle 2 Views IMPRESSION: Fluoroscopic guidance was used intraoperatively. Please refer to operative not e for further details. Reading Location: [id number]
--- NOTE | 2025-09-01 07:37 | PAT.ANESEVAL ---
Pre-Assessment Diagnosis/Proposed Procedure Planned Operative Procedure(s): ORIF left ankle. 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 When Was Last Pacemaker Check QUESTION #4 FULL TEXT: You/Your Family Experience fever (hyperthermia) with Anesthesia Last Oral Intake Last Oral intake: Last Oral Intake NPO since 00:00 09/01/25 03:33 Meds taken in AM with sips of No 09/01/25 03:33 water? Meds patient instructed to take am of surgery PONV PONV - hospitality internship: PONV - hospitality internship Female HX of Motion Sickness HX of N/V After Surgery Non-Smoker Duration of Surgery greater than 60 minutes Number of Risk Factors PONV Score Height & Weight Height & Weight: Anesthesia: Height & Weight Height 5 ft 6 in 09/01/25 03:33 Weight: 72.9 kg 09/01/25 03:33 Body Mass Index (BMI) 25.9 09/01/25 03:33 Respiratory Assessment Respiratory Assessment - hospitality internship: Respiratory Tract Infection Hx - hospitality internship Hx Respiratory Tract Infection No 08/31/25 21:22 STOP Sleep Apnea STOP Sleep Apnea - hospitality internship: STOP Sleep Apnea - hospitality internship Hx Hypertension Yes 08/31/25 12:14 Hx Sleep Apnea No 08/31/25 12:14 CPAP No 08/31/25 12:14 BIPAP No 08/31/25 12:14 Do you snore loudly (louder No 08/31/25 12:14 than talking or can be heard Do you often feel tired/ No 08/31/25 12:14 fatigued/ sleepy during daytime? Has anyone observed you stop No 08/31/25 12:14 breathing during sleep? STOP Results Negative 08/31/25 12:14 QUESTION #5 FULL TEXT : Do you snore loudly (louder than talking or can be heard through closed doors)? 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 Specify any problems Hx of Preganancy in last 3 No 08/31/25 12:14 Months Nurse Filling Out Transfusion KMESSENGE 08/31/25 12:14 & Questions: Date: 08/31/25 08/31/25 12:14 Time: 12:27 08/31/25 12:14 Patient unable to answer at this time (ie. confused, unrespo /Reproduction History /Reproductive History - hospitality internship: /Reproductive Hx- hospitality internship Hx Now No 08/31/25 21:22 Gestational Age (in weeks): EDC: Hx Hx Para Hx Section SAB No 08/31/25 21:22 Does the father of the baby or his family experience fever w Father of the baby Malignant Hypertension history comment Active Medications Active Medications: Current Medications Generic Name Dose Route Start Last Admin Trade Name Freq PRN Reason Stop Dose Admin Acetaminophen 650 mg 08/31/25 11:16 08/31/25 21:09 Acetaminophen 325 Mg Tablet PO 650 mg Q6H PRN Administration Pain Score 1-10 Amlodipine Besylate 5 mg 09/01/25 10:00 Amlodipine 5 Mg Tablet PO DAILY [facility] Protocol Hydromorphone HCl 0.5 mg 08/31/25 11:16 Hydromorphone 0.5 Mg/0.5 Ml Syringe IV Q6H PRN Pain Score 6-10 Sodium Chloride 250 mls @ 15 mls/hr 08/31/25 12:16 IV .[id number] PRN Saline Flush Sodium Chloride 250 mls @ 15 mls/hr 08/31/25 12:16 IV .[id number] PRN Additional IVPB Infusion Lisinopril 20 mg 09/01/25 10:00 Lisinopril 20 Mg Tablet PO DAILY [facility] Protocol Oxycodone HCl 5 mg 08/31/25 13:02 08/31/25 23:16 Oxycodone 5 Mg Tablet PO 5 mg Q4H PRN PRN Administration Pain Score 4-10 Sodium Chloride 10 - 40 ml 08/31/25 12:16 08/31/25 21:10 0.9% Saline Lock 10 Ml Syringe IV 10 ml UD PRN Administration SALINE FLUSH PFS Medical History Basal cell carcinoma of right forehead Wears dentures Cancer History of renal disease History of stress test Smoker Basal cell carcinoma of scalp Thyroid disease High blood pressure Home Medications ?Medication ?Instructions ?Recorded ?Last Taken ?Type lisinopril 20 mg tablet 20 mg PO DAILY 09/11/21 Unknown History amlodipine 5 mg tablet 5 mg PO DAILY 08/31/25 Unknown History Allergy/AdvReac Type Severity Reaction Status Date / Time iodine Allergy Severe Swelling Verified 08/31/25 09:20 and Hives Family History Other Cancer Heart disease Hypertension Ovarian cancer Thyroid disorder Surgical History History of basal cell carcinoma excision History of thyroid surgery History of tubal ligation History of hysterectomy History of knee surgery Social History Smoking Status: Current every day smoker tobacco type: cigarettes alcohol intake: never substance use type: does not use additional social history: Does Take Aspirin As Needed Does Take Ibuprofen As Needed Audit: Pertinent Findings Pertinent Findings Stress test pertinent findings: November 22, 2013. EF of 75%. No reversibility to notes ischemia. No infarct. Current Visit Impressions Current Visit Impressions: Clinical Impression(s) from Imaging Studies Ankle X-Ray 08/31/25 09:30 IMPRESSION: Nondisplaced transverse fracture of the distal fibula just proximal to the lateral malleolus. Nondisplaced oblique fracture of the posterior malleolus of the distal tibia. Asymmetry of the ankle mortise. Soft tissue swelling. Reading Location: [facility] Lower Extremity CT 08/31/25 11:04 IMPRESSION: Nondisplaced transverse fracture of the distal fibula just proximal to the lateral malleolus. Nondisplaced oblique fracture of the posterior medial malleolus of the distal tibia. Asymmetry of the ankle mortise. Diffuse soft tissue swelling. Reading Location: [facility] Recommendation Anesthesia Recommendation Anesthesia recommendation: OPTIMIZED for anesthesia
--- NOTE | 2025-09-01 07:44 | PCM.PRE.AN2 ---
ASA Classification* ASA Classification ASA Classification: 2 Assessment & Plan Anesthesia* Anesthesia Assessment Anesthesia Assessment: Discussed sedation and/or anesthesia options, risks, benefits, and alternatives with patient/parents/legal guardian/POA. Questions invited. The patient/parents/legal guardian/POA seems to understand and agrees to proceed with anesthesia plan. Reviewed the physical assessment, medical history, allergy history and patient home medications list prior to surgery/procedure/anesthetic and documented any changes. Performed airway and anesthesia risk assessments. Anesthesia Type Anesthesia Type: General and Block (Patient is consented for popliteal block.) History Source History Obtained from:: Patient and Chart Anesthesia Focused Assessment* Temperature: 98.1 F Pulse Rate: 81 Blood Pressure: 147/58 Respiratory Rate: 20 Pulse Ox: 96 Oxygen Delivery Method: Room Air Airway Assessment Mouth opens: >3 cm Mallampati Score: IV Teeth Condition: Dentures (Patient has full top dentures. They are very tight. They will stay in.) and Missing (Patient has several missing molars on the lower jaw. The rest are tight.) Neck Range of motion (ROM): Full ROM Labs Anesthesia Preop lab: CBC WBC, (4.4-11.0) 14.0 K/mm3 H 08/31/25, 11: RBC, (4.2-5.4) 4.32 M/mm3 08/31/25, : Hgb, (12.0-15.0) 14.0 g/dL 08/31/25, : Hct, (37-47) 41.5 % 08/31/25, : Plt Count, (150-450) 348 K/mm3 08/31/25, 11:30 CHEMISTRY Potassium, (3.3-5.1) 3.7 mmol/L 08/31/25, 11: Sodium, (133-145) 140 mmol/L 08/31/25, 11: BUN, (4-19) 12 mg/dL 08/31/25, 11: Creatinine, (0.70-1.20) 0.92 mg/dL 08/31/25, : Glucose, (70-99) 121 mg/dL H 08/31/25, 11: TSH, (0.300-4.200) 0.567 uIU/mL Today, 06:25 COAG PT, (11.7-14.9) 12.9 SECONDS 08/31/25, 11:30 Pre-Assessment Diagnosis/Proposed Procedure Planned Operative Procedure(s): ORIF left ankle. 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 When Was Last Pacemaker Check QUESTION #4 FULL TEXT: You/Your Family Experience fever (hyperthermia) with Anesthesia Last Oral Intake Last Oral intake: Last Oral Intake NPO since 00:00 09/01/25 03:33 Meds taken in AM with sips of No 09/01/25 03:33 water? 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 Female HX of Motion Sickness HX of N/V After Surgery Non-Smoker Duration of Surgery greater than 60 minutes Number of Risk Factors PONV Score Height & Weight Height & Weight: Anesthesia: Height & Weight Height 5 ft 6 in 09/01/25 03:33 Weight: 72.9 kg 09/01/25 03:33 Body Mass Index (BMI) 25.9 09/01/25 03:33 Respiratory Assessment Respiratory Assessment - longwall shearer operator: Respiratory Tract Infection Hx - longwall shearer operator Hx Respiratory Tract Infection No 08/31/25 21:22 STOP Sleep Apnea STOP Sleep Apnea - longwall shearer operator: STOP Sleep Apnea - longwall shearer operator Hx Hypertension Yes 08/31/25 12:14 Hx Sleep Apnea No 08/31/25 12:14 CPAP No 08/31/25 12:14 BIPAP No 08/31/25 12:14 Do you snore loudly (louder No 08/31/25 12:14 than talking or can be heard Do you often feel tired/ No 08/31/25 12:14 fatigued/ sleepy during daytime? Has anyone observed you stop No 08/31/25 12:14 breathing during sleep? STOP Results Negative 08/31/25 12:14 QUESTION #5 FULL TEXT : Do you snore loudly (louder than talking or can be heard through closed doors)? 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 Specify any problems Hx of Preganancy in last 3 No 08/31/25 12:14 Months Nurse Filling Out Transfusion KMESSENGE 08/31/25 12:14 & Questions: Date: 08/31/25 08/31/25 12:14 Time: 12:27 08/31/25 12:14 Patient unable to answer at this time (ie. confused, unrespo /Reproduction History /Reproductive History - longwall shearer operator: /Reproductive Hx- longwall shearer operator Hx Now No 08/31/25 21:22 Gestational Age (in weeks): EDC: Hx Hx Para Hx Section SAB No 08/31/25 21:22 Does the father of the baby or his family experience fever w Father of the baby Malignant Hypertension history comment Active Medications Active Medications: Current Medications Generic Name Dose Route Start Last Admin Trade Name Freq PRN Reason Stop Dose Admin Acetaminophen 650 mg 08/31/25 11:16 08/31/25 21:09 Acetaminophen 325 Mg Tablet PO 650 mg Q6H PRN Administration Pain Score 1-10 Amlodipine Besylate 5 mg 09/01/25 10:00 Amlodipine 5 Mg Tablet PO DAILY [facility] Protocol Hydromorphone HCl 0.5 mg 08/31/25 11:16 Hydromorphone 0.5 Mg/0.5 Ml Syringe IV Q6H PRN Pain Score 6-10 Sodium Chloride 250 mls @ 15 mls/hr 08/31/25 12:16 IV .[id number] PRN Saline Flush Sodium Chloride 250 mls @ 15 mls/hr 08/31/25 12:16 IV .[id number] PRN Additional IVPB Infusion Lisinopril 20 mg 09/01/25 10:00 Lisinopril 20 Mg Tablet PO DAILY [facility] Protocol Oxycodone HCl 5 mg 08/31/25 13:02 08/31/25 23:16 Oxycodone 5 Mg Tablet PO 5 mg Q4H PRN PRN Administration Pain Score 4-10 Sodium Chloride 10 - 40 ml 08/31/25 12:16 08/31/25 21:10 0.9% Saline Lock 10 Ml Syringe IV 10 ml UD PRN Administration SALINE FLUSH PFSH Medical History Basal cell carcinoma of right forehead Wears dentures Cancer History of renal disease History of stress test Smoker Basal cell carcinoma of scalp Thyroid disease High blood pressure Home Medications ?Medication ?Instructions ?Recorded ?Last Taken ?Type lisinopril 20 mg tablet 20 mg PO DAILY 09/11/21 Unknown History amlodipine 5 mg tablet 5 mg PO DAILY 08/31/25 Unknown History Allergy/AdvReac Type Severity Reaction Status Date / Time iodine Allergy Severe Swelling Verified 08/31/25 09:20 and Hives Family History Other Cancer Heart disease Hypertension Ovarian cancer Thyroid disorder Surgical History History of basal cell carcinoma excision History of thyroid surgery History of tubal ligation History of hysterectomy History of knee surgery Social History Smoking Status: Current every day smoker tobacco type: cigarettes alcohol intake: never substance use type: does not use additional social history: Does Take Aspirin As Needed Does Take Ibuprofen As Needed Review of Systems (Anesthesia) ROS Narrative System reviewed and no additional complaints, except as documented.
[2025-09-01] MEDS: Cefazolin 1 GM/5 ML Vial 2 GM IV (08:15)
[2025-09-01] MEDS: Lactated Ringers 1,000 ML 15 ML IV (08:30)
[2025-09-01] MEDS: fentaNYL 100 MCG/2 ML Ampul IV (10:07)
--- NOTE | 2025-09-01 10:40 | RAD_ITS ---
PROCEDURE: ANKLE MIN 3 VIEWS 09/01/2025 REASON FOR EXAM: POST OP TECHNIQUE: Procedure Code: RADANK Modality: DX Procedure: ANKLE MIN 3 VIEWS Laterality: Right COMPARISON: None. FINDINGS: Bones: Status post correction of distal fibular and tibial fractures with metallic hardware. No hardware loosening. Joints: The distal tibial fibular joint and the mortise joints are well aligned. Soft tissues: No soft tissue abnormalities. RAD/Ankle min 3 Views IMPRESSION: Postsurgical changes for correction of distal fibular and tibial fractures with metallic hardware. Anatomical alignment. Reading Location: [id number]
--- NOTE | 2025-09-01 10:44 | PCM.OPRPT ---
Operative Report (Standard) Operative Information Date of Procedure: 09/01/25 Pre-Operative Diagnosis: Left ankle trimalleolar ankle fracture Post-Operative Diagnosis: Same Surgery/Procedure Performed: Open reduction internal fixation of left ankle housecalls nurse: Yes Sheet Metal Layout Mechanic: Becki Luis Tasks completed by topographical field assistant: Closing and Implanting device Additional registered nurse first assistant?: No Type of Anesthesia: General RN Documented Start/Stop Times: Operation Date: 09/01/25 08:00 Case Time Anesthesia Start 09/01/25 07:57 Into Room 09/01/25 07:57 Procedure Start 09/01/25 08:28 Procedure End 09/01/25 10:29 Anesthesia End 09/01/25 10:44 Out of Room 09/01/25 10:44 Into Recovery 09/01/25 10:46 Out of Recovery 09/01/25 11:42 Procedure Start Time: 08:28 Procedure Stop Time: 10:29 Select all DRAINS/GRAFTS/IMPLANTS that apply: None Estimated Blood Loss: 10mL Specimen collected: No Description of surgery: Indications: 74 year old female sustained displaced left ankle fracture, presented to ER yesterday, was admitted for pain control and surgical intervention. Discussed options with patient and she elected to proceed with open reduction internal fixation. The procedure was reviewed with her, reviewed rationale of procedure, possible benefits vs risks, goals, expectations and estimated healing time. Advised her the risks include but not limited to pain, bleeding, blood clots, need for further surgery, delayed healing, nonhealing, numbness, loss of limb, loss of life. Advised on the possibility of post traumatic arthritis as well. She expressed understanding and agreement, the consent form was reviewed with her and she freely signed it. No guarantees or warranties were given nor implied. Operative Procedure: The patient was brought back to the operating room and was placed on the operating room table in the supine position with a safety belt around her waist. The patient received 2g of IV Ancef for antibiotic prophylaxis. The patient received general anesthesia per the anesthesiologist. A well padded pneumatic tourniquet was applied around the patient's left thigh. A timeout was performed and the patient was properly identified and surgical plan confirmed. The left below knee splint was removed and it was noted the ankle was noted to be unstable consistent with the ankle fracture injury. The patient's left foot ankle and leg were scrubbed, prepped, and draped in the usual aseptic fashion. Left ankle Open Reduction Internal Fixation: It was again noted the ankle was noted to be unstable, preoperative left ankle xrays and CT scan reviewed which confirmed fracture with displacement consistent with trimalleolar ankle fracture equivalent. The left foot and ankle were exsanguinated using an Esmarch bandage and the left thigh pneumatic tourniquet was inflated in 300mmHg. Using a 15 blade, a skin incision was made overlying the lateral malleolus. Careful dissection was completed down to the lateral malleolus fracture. The periosteum was left intact. There was a malrotated displaced lateral malleolus fracture. The fibula was brought out to length and was rotated back to normal position. The fracture was fixated using rigid open reduction internal fixation technique with 1 [place] contoured lateral malleolar plate, which was applied across the fracture site using all appropriate lengths of 2.7mm locking screws distal to fracture and 3.5mm locking screws proximal to fracture, and one 3.5mm cortical screw through the plate as well using rigid open reduction internal fixation technique. There fracture was reduced, very stable, and in good position. This was confirmed visually as well as using intra operative fluoroscopy. A small linear skin incision was made overlying the posterior malleolus just lateral to the achilles tendon, and careful dissection was completed down to the fracture site. The fracture was identified and was reduced into normal anatomic alignment using a freer periosteal elevator, and temporarily fixated with 3 kwires, then it was rigidly fixated using 2 x 4.0mm cannulated [place] screws using rigid open reduction internal fixation technique. The posterior malleolus was now stable and in good position. The medial malleolus was in good position and alignment. The ankle was in reduced and stable position at this time. This was confirmed visually as well as using intra operative fluoroscopy. There was noted to be some mild instability of the distal syndesmosis however, and the syndesmosis was reduced, and fixated using one [place] Synchfix and appropriately tensioned. At this time, the distal ankle syndesmosis was stressed with and it was noted be be stable with no gapping present. Intra operative fluoroscopy was used to confirm proper reduction and placement of the ankle and hardware. The hardware was in appropriate position and was not violating the ankle joint intra articularly. At this time there was noted to be excellent stability to the ankle joint and of the reduced and fixated fracture sites, range of motion was smooth and gliding normally. There was no popping, clicking, or crepitus present. Intraoperative fluoroscopy was used to check the site and it was noted fibular length and tib fib overlap was normal, ankle mortise with medial and lateral gutters in normal position/alignment with good positioning of the plate, screws, and tight rope. There was good bone to bone alignment of the fracture sites. There was excellent stability to the ankle / fracture site. No screws were in the joint. The ankle was stressed under fluoroscopy and negative anterior drawer, normal talar tilt, no medial gutter gapping with external stress test, and no gapping or instability with Cotton test as noted above. The surgical site was flushed out with copious amounts of normal saline solution. The subcutaneous tissue was reapproximated using 3-0 Vicryl, and the skin was 3-0 Nylon. Hemostasis maintained with no significant bleeding. The left thigh pneumatic tourniquet was deflated (total time was 120 minutes). There was immediate return of perfusion to left foot. CFT < 2 seconds to all toes with intact pedal pulses. A dressing was applied which consisted of adaptic, 4x4 gauze, Kerlix, webril, dianna bandages, and well padded below knee posterior splint w/ heel offloaded. Also of note, all vital structures, including all vital neurovascular and tendon structures were properly identified, protected and retracted as necessary. The patient tolerated the above procedure well and anesthesia well with no complications. The patient was transported to the recovery room in good condition and vital signs stable. Post op orders were placed, no weightbearing left foot, keep left foot elevated. Keep dressing/splint clean, dry and intact. She did receive a left lower extremity popliteal and saphenous nerve block in the recovery room per the anesthesia team. She will be followed as inpatient at this time. Surgical Findings: As noted above Complications Complications: No
--- NOTE | 2025-09-01 10:50 | PCM.POST.ANE ---
Anesthesia: Postop Eval I Current Vital Signs Temperature: 97 F Pulse Rate: 78 Blood Pressure: 132/83 Respiratory Rate: 18 Pulse Ox: 96 Oxygen Delivery Method: Nasal Cannula Oxygen Flow Rate (L/min): 2 Assessment Airway patent: Yes Spontaneous unlabored respirations: Yes Mental status: Asleep nausea: No Vomiting: No Anesthesia Complication: No Fluid Hydration Crystalloid volume administer (ml): 1,100 Total IV fluid infused: 1,100 Progress Note Anesthesia document: Postop Eval 1 completed: Yes
--- NOTE | 2025-09-01 11:01 | CASEMGMT ---
Social Work SW attempted to complete assessment but patient is in surgery. JACK iSngleton
--- NOTE | 2025-09-01 11:25 | PCM.POSTANE2 ---
Anesthesia Postop Eval I Sum Postop Eval Completion status Anesthesia document: Postop Eval 1 completed: Yes Anesthesia Postop Eval I Summary Anesthesia Postop Eval I Summary: Anesthesia Postop Eval I: Assessment Summary Airway patent Yes 09/01/25 10:52 Spontaneous unlabored Yes 09/01/25 10:52 respirations Mental status Asleep 09/01/25 10:52 nausea No 09/01/25 10:52 Vomiting No 09/01/25 10:52 Anesthesia Postop Eval I: Fluid Summary Crystalloid volume administer 1,100 09/01/25 10:52 (ml) Colloids volume administered ( ml) Blood Product volume administered (ml) Total IV fluid infused 1,100 09/01/25 10:52 Anesthesia Postop Eval I: Summary Notes Anesthesia Complication No 09/01/25 10:52 Anesthesia Complication Comment: Post-operative progress note Anesthesia: Postop Eval II Evaluation Mental status: Asleep (Arousable) Pain Level: 4 nausea: No Vomiting: No Progress Note Post-operative progress note: Popliteal nerve block done in PACU. Complications Anesthesia Complication: No
--- NOTE | 2025-09-01 12:26 | CASEMGMT ---
Social Work Primary Care Doctor: Jennie Wilhelm Speciality doctors: none Insurance: [employer] Medicare Pharmacy: Patient utilizes [facility]. Advanced directives: Patient reported she has a POA and LW. LNOK: granddaughter Marital/Social History: Patient is a . Her daughter has . Living Situation: The patients granddaughter and the granddaughters live with her. She has 3 steps into the home. ADL's/Prior level of functioning: independent Transportation: Patient still drives. DME: WC, rollator, shower chair correction/home health history: none Mental Health: none Substance abuse history: none Assessment: The patients granddaughter and the granddaughters live with her. She has 3 steps into the home. PLAN: Patient wants to DC home. Social Work to continue to follow. JACK Singleton
[2025-09-01] MEDS: 0.9% Saline Lock 10 ML Syringe IV ×3 (12:38→23:19)
--- NOTE | 2025-09-01 13:16 | PN.HOSP_ITS ---
Reason for Visit Chief Complaint: Left ankle fracture Subjective Subjective Having pain, post-op Objective Data Objective Data Vital Signs: Vital Signs Temp Pulse Resp BP Pulse Ox O2 Del Method O2 Flow Rate 36.8 C 80 16 120/62 96 Nasal Cannula 2 09/01/25 11:56 09/01/25 11:56 09/01/25 11:56 09/01/25 11:56 09/01/25 11:56 09/01/25 12:26 09/01/25 12:26 Oxygen Flow Rate (L/min) 2 Oxygen Delivery Method Nasal Cannula Weight: 72.9 kg Body Mass Index (BMI) 25.9 Intake & Output: Intake and Output for Last 24 Hours 08/30/25 08/31/25 09/01/25 23:59 23:59 23:59 Intake Total 1150 / 1150 Output Total / Balance 1145 / 1145 Lab / Micro Data 08/31/25 11:30 08/31/25 11:30 Labs: Laboratory Results - last 24 hr 09/01/25 06:25: TSH 0.567 Radiography Diagnostic Testing: Radiology Impression Ankle X-Ray 09/01/25 07:00 IMPRESSION: Fluoroscopic guidance was used intraoperatively. Please refer to operative note for further details. Reading Location: [facility] Ankle X-Ray 09/01/25 10:40 IMPRESSION: Postsurgical changes for correction of distal fibular and tibial fractures with metallic hardware. Anatomical alignment. Reading Location: [facility] Social Homelessness:: Sheltered Physical Exam Const alert and no apparent distress Constitutional Narrative: groggy. HEENT head/scalp atraumatic and moist oral mucous membranes Resp normal respiratory effort, no retractions, no use of accessory muscles and clear to auscultation bilaterally Cardio regular rate, regular rhythm, S1 normal heart sound and S2 normal heart sound GI normal to inspection, nondistended, normoactive bowel sounds, soft to palpation, non-tender and non-distended Extremity normal to inspection and full ROM Neuro Sensorium / Orientation: awake and alert Assessment & Plan Assessment/Plan (1) Trimalleolar fracture of left ankle: PLAN: s/p fall. casted. plans for surgery on 09/01. Patient with good performance status. Medically optimized to proceed with surgery. EKG shows no concerning findings that would warrant additional cardiac work up. Medically stable to proceed with surgery. s/p ORIF left ankle 09/01 PLAN: Plan HTN: stable. continue amlodipine and lisinopril Patient medically stable. Nothing further to add from a medical perspective. The hospitalist service will sign off, please call with questions/concerns. Charges/Coding Visit Charges Inpatient E&M: 11323 [facility] L1
[2025-09-01] MEDS: Cefazolin 1 GM/50 ML BAG IV ×2 (16:00→23:20)
[2025-09-02 01:21] VITALS: BP 137/67; PULSE 80; RESP 17; TEMP 37.3; O2SAT 93
[2025-09-02 05:06] VITALS: BP 130/71; PULSE 80; RESP 16; TEMP 36.9; O2SAT 93
[2025-09-02] MEDS: Cefazolin 1 GM/50 ML BAG IV (05:12)
--- NOTE | 2025-09-02 08:17 | PCM.PROGNOTE ---
Subjective Subjective Patient was seen today for follow up on left ankle. She is resting comfortably in bed, no complaints, no complaints of f/c/n/v/sob/chest pain/calf pain. She relates she feels good to go home today. Objective Data Objective Data Vital Signs: Vital Signs Temp Pulse Resp BP Pulse Ox O2 Del Method O2 Flow Rate 98.5 F 80 16 130/71 H 93 Room Air 2 09/02/25 05:06 09/02/25 05:06 09/02/25 05:06 09/02/25 05:06 09/02/25 05:06 09/02/25 05:06 09/01/25 12:26 Oxygen Flow Rate (L/min) 2 Oxygen Delivery Method Room Air Weight: 72.9 kg Body Mass Index (BMI) 25.9 Intake & Output: Intake and Output for Last 24 Hours 08/31/25 09/01/25 09/02/25 23:59 23:59 23:59 Intake Total 1650 / 1850 650 / 650 Output Total 5 / 5 Balance 1645 / 1845 650 / 650 Lab / Micro Data 08/31/25 11:30 08/31/25 11:30 Radiography Diagnostic Testing: Radiology Impression Ankle X-Ray 09/01/25 07:00 IMPRESSION: Fluoroscopic guidance was used intraoperatively. Please refer to operative note for further details. Reading Location: [facility] Ankle X-Ray 09/01/25 10:40 IMPRESSION: Postsurgical changes for correction of distal fibular and tibial fractures with metallic hardware. Anatomical alignment. Reading Location: [facility] Social Homelessness:: Sheltered Physical Exam Const alert, oriented x3 and no apparent distress Constitutional Narrative: Left foot/ankle/leg with dressing and splint clean, dry and intact, no strikethrough, CFT < 2 seconds to all toes, and able to dorsiflex and plantarflex toes, pain controlled, no suspicion of infection or dvt, no calf pain bilateral. General Appearance: cooperative and comfortable Assessment & Plan Assessment/Plan (1) Trimalleolar fracture of left ankle: (2) Ankle pain, left: PLAN: Plan Evaluation performed. s/p ORIF left ankle on 09/01/2025 - doing well, no evidence of complication. No weightbearing left foot, keep left foot elevated. Patient has walker and wheelchair at home, spoke with patient's grand-daughter and she is getting patient a knee walker/scooter as well. Pain management: Dilaudid, Oxyir, Acetaminophen. Plan for hydrocodone/acetaminophen tablets on discharge DVT Prophylaxis: Lovenox subc 40mg today, plan for Apixaban 2.5mg PO q 12 hours on discharge. Antibiotic Prophylaxis: Completed course of Ancef 1g q 8 hours. Hospital medicine consulted, appreciated assistance. Plan for discharge home today.
--- NOTE | 2025-09-02 08:43 | PCM.DC ---
Discharge Instructions DC O2, CPAP, BIPAP needs Home O2 Discharge instructions: No Dressing / Incision Discharge Activity: Use Walker (Use walker, wheelchair, or knee walker/scooter to avoid weight on left foot/ankle) Weight Bearing Status: No weight bearing (No weightbearing left foot/ankle) Keep extremity elevated above heart level: Operative Extremity (Keep left foot/ankle elevated with pillows for at least 50 minutes of every hour) Dressing / Incision Call your doctor if your incision/area has: Continuous Slow Oozing, Sudden Increased Bleeding and Foul Smelling Discharge Call your doctor if you observe: Fever of 101 or Higher, Shortness of breath, Chest pain, Increased palpitations (irregular heartbeat), Calf discomfort and Uncontrolled pain Change Dressing in: do not change dressing Remove Dressing in: do not remove dressing Cleanse incision/area with: Keep Dressing Clean & Dry Follow Up Care Please Follow Up With: Mihir Schmid DPM When: follow up with Dr. Schmid in 1 week at his office [facility], [address] [place] [address], call sooner if needed Office number: [phone] Test Results: Test results from this visit will be discussed in further detail at your follow-up appointment, if applicable. Apixaban (Eliquis) has been prescribed to help prevent a blood clot. Start taking the Apixaban (Elquis) morning of 09/03/2025. Avoid any medication which contains NSAIDs while taking the Apixban (Eliquis) as these can increase the blood thinning affect and increases chance of abnormal bleeding. Discharge Plan Admission Admit Date/Time: 08/31/25 11:00 Attending Provider: Mihir Schmid Primary Care Provider: Jed Schneider Consulting Providers: Serafin Bunch Discharge Orders/Prescriptions Prescriptions: New Eliquis 2.5 mg tablet 2.5 mg PO Q12H Qty: 60 0RF hydrocodone-acetaminophen 5-325 mg tablet 1 - 2 tab PO Q6H PRN (Reason: pain) 3 Days Qty: 20 0RF Continued lisinopril 20 mg tablet 20 mg PO DAILY amlodipine 5 mg tablet 5 mg PO DAILY Referrals / Follow Up: Jed Schneider MD [Primary Care Provider, Family Practice]
[2025-09-02 09:10] VITALS: BP 128/65; PULSE 86; RESP 16; TEMP 37; O2SAT 97
[2025-09-02 12:54] VITALS: BP 134/74; PULSE 96; RESP 18; TEMP 37.2; O2SAT 95
--- NOTE | 2025-09-18 13:10 | PCM.DC.SUM ---
Providers Date of Admission: 08/31/25 Primary Care Physician: Dr. Jed Schneider MD Consultations 08/31/25 12:58 Consult: Hospitalist Routine Consulting Provider: Serafin Bunch Reason for Consult: hypertension EMERGENT Consult: No MD Notified: Yes Date Notified: 08/31/25 Time Notified: 12:26 Method of Notification: Text Reason For Visit: PAINFUL ANKLE FRACTURE Diagnosis Discharge Diagnosis (1) Trimalleolar fracture of left ankle: Status: Acute Code(s): S82.852A - Displaced trimalleolar fracture of left lower leg, initial encounter for closed fracture (2) Ankle pain, left: Status: Acute Code(s): M25.572 - Pain in left ankle and joints of left foot Plan Evaluation performed. s/p ORIF left ankle on 09/01/2025 - doing well, no evidence of complication. No weightbearing left foot, keep left foot elevated. Patient has walker and wheelchair at home, spoke with patient's grand-daughter and she is getting patient a knee walker/scooter as well. Pain management: Dilaudid, Oxyir, Acetaminophen. Plan for hydrocodone/acetaminophen tablets on discharge DVT Prophylaxis: Lovenox subc 40mg today, plan for Apixaban 2.5mg PO q 12 hours on discharge. Antibiotic Prophylaxis: Completed course of Ancef 1g q 8 hours. Hospital medicine consulted, appreciated assistance. Plan for discharge home today. Medications at Discharge Home Medications lisinopril 20 mg tablet 20 mg PO DAILY 09/11/21 amlodipine 5 mg tablet 5 mg PO DAILY 08/31/25 apixaban 2.5 mg tablet (Eliquis) 2.5 mg PO Q12H #60 tabs 09/02/25 hydrocodone-acetaminophen 5-325mg 5mg-325mg 1 - 2 tab PO Q6H PRN pain 3 days #20 tabs 09/02/25 Hospital Course Summary of Care Provided Hospital Course: Admitted for left ankle fracture for pain and surgical intervention which was completed without complication. Medical Records Data Homelessness:: Sheltered Weight / BMI Weight Weight: 72.9 kg Body Mass Index (BMI) 25.9 ABG / Lab / Microbiology Data 08/31/25 11:30 08/31/25 11:30 D/C Instructions Weight Bearing Status: No weight bearing (No weightbearing left foot/ankle) Keep extremity elevated above heart level: Operative Extremity (Keep left foot/ankle elevated with pillows for at least 50 minutes of every hour) Call your doctor if your incision/area has: Continuous Slow Oozing, Sudden Increased Bleeding and Foul Smelling Discharge Call your doctor if you observe: Fever of 101 or Higher, Shortness of breath, Chest pain, Increased palpitations (irregular heartbeat), Calf discomfort and Uncontrolled pain Cleanse incision/area with: Keep Dressing Clean & Dry DC O2, CPAP, BIPAP Needs Home O2 Discharge instructions: No Please Follow Up With: Mihir Schmid DPM When: follow up with Dr. Schmid in 1 week at his office [facility], [address] [place] [address], call sooner if needed Office number: [phone] Meaningful Use Info Meaningful Use Meaningful Use Diagnoses (Choose all that apply): None applicable Discharge Plan Admission Admit Date/Time: 08/31/25 11:00 Attending Provider: Mihir Schmid Primary Care Provider: Jed Schneider Consulting Providers: Serafin Bunch Discharge Orders/Prescriptions Prescriptions: New Eliquis 2.5 mg tablet 2.5 mg PO Q12H Qty: 60 0RF hydrocodone-acetaminophen 5-325 mg tablet 1 - 2 tab PO Q6H PRN (Reason: pain) 3 Days Qty: 20 0RF Continued lisinopril 20 mg tablet 20 mg PO DAILY amlodipine 5 mg tablet 5 mg PO DAILY Referrals / Follow Up: Jed Schneider MD [Primary Care Provider, Family Practice] Disposition Disposition (needs filled in before D/C Order can be placed): Home, Self Care
== END 2025-09-02 12:50 | disposition home or self-care (01) ==
LOC: ED 12:00 → MS3 12-11 11:40
PROVIDERS: Anesthesiology; Admitting Provider Podiatrist; Emergency Provider Emergency Medicine; PCP Family Medicine; Visit Provider Podiatrist
PROC: (CPT 27822; principal; 2025-09-01 07:40)
DX: S82.852A Displaced trimalleolar fracture of left lower leg, initial encounter for closed fracture (principal); Z59.01 Sheltered homelessness; I10 Essential (primary) hypertension; F17.210 Nicotine dependence, cigarettes, uncomplicated; Z79.899 Other long term (current) drug therapy; X58.XXXA Exposure to other specified factors, initial encounter
CPT/HCPCS: 27822; 01480; 29515; 36415; 73600; 73610; 73700; 76000; 80053; 82306; 84443; 85025; 85610; 85730; 93005; 96365; 96366; 96372; 99221; 99285; C1713; A4216; G0378